=== PATIENT | female | born 1945 | race Two or more races ===

== ENCOUNTER → 2024-04-30 | Outpatient (CLI) | payer MEDICARE, SELFPAY ==
--- NOTE | 2024-04-30 13:30 | ECHO_ITS ---
Transthoracic Echo Report Ht (in): 66 Wt (lb): 155 Exam Location: Echo Lab Status: Preadmit Transaction Processor: Gina Yang Indications: Procedure Performed: BP: / HR: Rhythm: Sinus/PVC Technical Quality: Fair MEASUREMENTS (Male / Female) Normal Values 2D ECHO LV Diastolic Diameter PLAX 4.7 cm 4.2 - 5.9 / 3.9 - 5.3 cm LV Systolic Diameter PLAX 3.3 cm IVS Diastolic Thickness 0.9 cm 0.6 - 1.0 / 0.6 - 0.9 cm LVPW Diastolic Thickness 0.8 cm 0.6 - 1.0 / 0.6 - 0.9 cm LV Relative Wall Thickness 0.4 LVOT Diameter 1.8 cm LA Volume Index 20.0 cm?/m? 16 - 28 cm?/m? Ascending Aorta Diameter 3.2 cm M-MODE Aortic Root Diameter MM 2.7 cm LA Systolic Diameter MM 4.1 cm LA Ao Ratio MM 1.5 AV Cusp Separation MM 2.0 cm DOPPLER AV Peak Velocity 151.0 cm/s AV Peak Gradient 9.1 mmHg AV Mean Gradient 4.0 mmHg AV Velocity Time Integral 31.9 cm LVOT Peak Velocity 108.0 cm/s LVOT Peak Gradient 4.7 mmHg LVOT Velocity Time Integral 24.0 cm AV Area Cont Eq vti 1.9 cm? AV Area Cont Eq pk 1.8 cm? MV Peak Velocity 113.0 cm/s MV Peak Gradient 5.1 mmHg MV Mean Velocity 68.1 cm/s MV Mean Gradient 2.0 mmHg MV Area PHT 3.8 cm? MR Peak Velocity 474.5 cm/s MR Peak Gradient 90.1 mmHg Mitral E Point Velocity 78.6 cm/s Mitral A Point Velocity 97.5 cm/s Mitral E to A Ratio 0.8 LV E' Lateral Velocity 8.5 cm/s Mitral E to LV E' Lateral Ratio 9.3 LV E' Septal Velocity 6.5 cm/s Mitral E to LV E' Septal Ratio 12.0 TR Peak Velocity 254.0 cm/s TR Peak Gradient 25.8 mmHg FINDINGS Left Ventricle Normal left ventricular size, wall thickness, systolic function with no obvious regional wall motion abnormalities. The ejection fraction is visually estimated at 55-60 %. Right Ventricle The right ventricle is normal in size and systolic function. The estimated right ventricular systoli c pressure, 31mmHg. RAP 5. Left Atrium The left atrium is normal by two-dimensional, color flow and Doppler imaging with no structural abnormalities, no thrombus formation present. Right Atrium The right atrium is normal by two-dimensional imaging, color flow and Doppler imaging with no struct ural abnormalities, no thrombus formation present. Atrial Septum The interatrial septum appears normal with no evidence of a shunt. Aorta The aorta is normal by two-dimensional, color flow and Doppler interrogation. Mitral Valve The mitral valve is mildly MAC. There is mild to moderate mitral valve regurgitation. Aortic Valve The aortic valve is trileaflet and normal by two-dimensional, color flow and Doppler interrogation. There is no significant aortic valve regurgitation. Tricuspid Valve The tricuspid valve is normal by two-dimensional, color flow and Doppler interrogation. There is mil d tricuspid valve regurgitation. Pulmonic Valve The pulmonic valve is normal by two-dimensional, color flow and Doppler interrogation. There is no significant pulmonic valve regurgitation. Vessels The pulmonary artery appears normal. The inferior vena cava pulmonary and hepatic veins appear nikos l. Pericardium The pericardium is normal by two-dimensional imaging. There is no significant pericardial effusion. CONCLUSIONS Indication: Malignant neoplasm of pancreatic duct Normal LV size and function. Stage I diastolic dysfunction. Estimated EF 55-60% Normal RV size and function. Mild MAC. Mild to moderate MR. Mild TR. Nehemias Aguirre (Electronically Signed) Final Date: 01 May 2024 08:17
--- NOTE | 2024-04-30 14:00 | XR_ITS ---
Examination: CT chest with intravenous contrast CT abdomen with intravenous contrast CT pelvis with intravenous contrast 2-D coronal and sagittal reconstructions Time of exam: April 30, 20[address] abdomen pelvis January 06, 2024 INDICATIONS: Diagnosis malignant neoplasm pancreatic duct August 2023, restaging CTDI: vol (mGy) : 20.2 DLP: (mGycm): 822 Technique: Multiple axial images of the chest, abdomen and pelvis with intravenous contrast, 3.0 mm slice thickness. Images obtained post intravenous injection Isovue 370 60 cc. 2-D sagittal and coronal reconstructions. Low dose protocols were performed. One or more of the following dose reduction techniques were used; automated exposure control, adjustment of the mA and/or KV according to patient size, use of iterative reconstruction technique. Findings: No thoracic aortic aneurysm dilatation or dissection No pulmonary artery emboli Moderate calcification left main left anterior descending coronary arteries No paratracheal tracheobronchial or bronchopulmonary adenopathy No pneumonia, pulmonary edema, pleural disease or pulmonary nodules Diffuse fatty liver Liver is mildly irregular in contour Absent gallbladder Common bile duct does not appear enlarged Surgical clips in the pancreatic bed with no pancreatic mass noted Suspicious for 17 mm para-aortic lymph node No hydronephrosis No bowel obstruction Normal appendix Colonic diverticulosis, no diverticulitis No pelvic mass Urinary bladder intact Moderate osteopenia with advanced degenerative disc disease L2-L3, L3-L4, L4-L5 IMPRESSION: No mediastinal lymphadenopathy No pneumonia, pulmonary edema, pleural disease or pulmonary nodules Suspicious for 17 mm periaortic lymph node, consider PET CT scan follow-up
== END | disposition home or self-care (01) ==
PROVIDERS: PCP Internal Medicine; Referring Provider Internal Medicine Hematology & Oncology; Visit Provider Internal Medicine Hematology & Oncology
DX: I08.1 Rheumatic disorders of both mitral and tricuspid valves (principal); C25.3 Malignant neoplasm of pancreatic duct
CPT/HCPCS: 71260; 74177; 93306; A4649; Q9967

== ENCOUNTER 2024-05-05 13:06 | Outpatient (RCR) | payer MEDICARE, SELFPAY ==
[2024-04-30 12:07] LABS: Basophils # (Auto) 0.1 Thou/mm3 (0.0-0.2); Basophils % (Auto) 0 % (0-2.5); Eosinophils # (Auto) 0.2 Thou/mm3 (0.0-0.5); Eosinophils % (Auto) 2 % (0-10); Hematocrit 34.7 % (36.0-46.0); Hemoglobin 11.3 g/dL (12.0-16.0); Immature Granulocytes % (Auto) 0 % (0-0); Immature Granulocytes Auto 0.03 Thou/mm3 (0.00-0.00); Lymphocytes # (Auto) 2.3 Thou/mm3 (1.0-4.8); Lymphocytes % (Auto) 19 % (10-50); Mean Corpuscular HGB Conc 32.6 g/dl (31.0-37.0); Mean Corpuscular Hemoglobin 27.4 pg (25.0-35.0); Mean Corpuscular Volume 84 fL (80-100); Monocytes % (Auto) 8 % (0-12); Neutrophils # (Auto) 8.7 Thou/mm3 (1.8-7.7); Neutrophils % (Auto) 71 % (37-80); Nucleated Red Blood Cell % 0 /100 WBC (0); Platelet Count 305 Thou/mm3 (140-440); RDW Standard Deviation 43.4 fL (36.4-46.3); Red Blood Count 4.13 Miln/mm3 (4.00-5.20); White Blood Count 12.3 Thou/mm3 (3.6-11.0)
[2024-04-30 12:34] LABS: Alanine Aminotransferase 15 U/L (10-49); Albumin, Serum 4.6 gm/dL (3.4-4.8); Albumin/Globulin Ratio 2.1 (1.2-2.2); Alkaline Phosphatase 188 U/L (46-116); Anion Gap 5 (7-16); Aspartate Amino Transferase 20 U/L (0-34); BUN/Creatinine Ratio 18 Ratio (12-20); Bilirubin,Total 0.2 mg/dL (0.3-1.2); Blood Urea Nitrogen 18 mg/dL (9-23); Calcium 9.3 mg/dL (8.3-10.6); Calcium (Corrected) 9.3 mg/dL (8.5-10.1); Carbon Dioxide 25.1 mMol/L (20.0-31.0); Chloride 108 mMol/L (98-107); Globulin 2.2 gm/dL (2.3-3.5); Glucose 93 mg/dL (74-106); Osmolality,Calculated 277 (275-295); Potassium 4.4 mMol/L (3.4-5.1); Sodium 138 mMol/L (136-145); Total Protein 6.8 gm/dL (5.7-8.2); eGFR 58 See Note
[2024-05-04 06:24] LABS: CA 19-9 Antigen* 36 U/mL (<34)
--- NOTE | 2024-05-24 20:48 | CTCFLWUP_ITS ---
Patient: TYREL VOGT : 1945 Page 2 of 4 FOLLOW UP NOTE DATE OF SERVICE: 05/04/2024 NAME: TYREL VOGT ACCOUNT: [id number] : 1945 AGE: 78 INTERVAL HISTORY: Patient doing well and have no complaints. Patient is able to do all activities of daily living. ONCOLOGY HISTORY: DIAGNOSIS: Malignant neoplasm of pancreatic duct [ICD10] C25.3 04/30/2024 CT scan shows no mediastinal lymphadenopathy no pneumonia. 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 S/p Whipple resection (08/21/2023) S/p adjuvant chem otherapy with capecitabine and gemcitabine (11/05/2023??12/25/2019). Unfortunately she is not able to to lerate full recommended doses. Upper abdominal pain due to UTI (01/10/2024) treated with antibiotics. Chemotherapy was discontinued a t patient's. Timeline Tyrel Vogt is ENG speaking female with history of hypertension and depression has the [facility] oncology history. April 2023: Ms. Vogt started having upper abdominal discomfort/pain. 07/04: The patient found that she is jaundiced and went to [facility] emergency room. 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 She had stent placed. She also had biliary drain tube. With drainage to the outside. She was in the hospital till July 10, After that she was transferred to [facility]. She was admitted to the Hospital. She had biop sy of the pancreatic mass and discharged home on . Apparently biopsy showed pancreatic canc er. 07/12/2023: Ms. Vogt had CT scan of the chest with contrast? Patient: TYREL VOGT : [birth year] Page 2 of 6 08/21/2023: Ms. Vogt had a Whipple resection of the head of the pancreas with resection of the partial antrum of the stomach, liver resection of partial segments 3 and partial segments 4, 5, placement of fiducial markers, removal of foreign body which was a cholecy stostomy tube and periportal lymphadenectomy. Patient: TYREL VOGT : 1945 136 Page 3 of 6 11/05/2023?12/25/2019: The patient was treated with adjuvant capecitabine and gemcita bine. The chemotherapy was discontinued due to severe urosepsis requiring her to be transferred to [facility]. 01/22/2024: Chest x-ray PA and lateral views were obtained due to shortness of breath. Patient had a history of cigarette smoking for about 30 years. 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 Tobacco Use:?Quit 3 months ago - smoked 1pack/week x 30yrs ETOH?Use:?Denies Drug?Note:?Denies Social History Note:?Son and family live with pt [employer] HISTORY: Menarche?-?Age:?17 Menopause:?45 :?3 Live?Births:?3 Age?1st?:?19 MEDICATIONS: 1. buPROPion HCL - 150 mg 1 tab Daily 2. Creon - 36,000-114,000- 180,000 unit 1 Capsule Three times a day Medications Last Reconciled by Emilia Mitchell MA on 05/04/2024 ALLERGIES: erythromycin base REVIEW OF SYSTEMS: A complete 14-point review of systems was performed and is negative except as noted in interval histo ry. PHYSICAL EXAMINATION: VITAL SIGNS: Temperature?98.6, B/P?152/86, Oxygen?Saturation?98% Weight?153?lbs (Change?since? 4:?-2.6?lbs) PAIN: 0 - No pain ECOG Performance Status: 0 - Asymptomatic and fully active GENERAL APPEARANCE: Appears well, in no apparent distress, appropriately interactive. HEENT: Normocephalic, no temporal wasting, normal conjunctiva, no scleral icterus, normal hearing, li ps without lesions, neck normal range of motion. CARDIOVASCULAR: Not assessed. PULMONARY: Normal respiratory effort, no respiratory distress or use of accessory muscles, speaking i n full sentences, no tachypnea. EXTREMITIES: No pedal edema or cyanosis. SKIN: Normal skin appearance. NEUROLOGIC: Alert and oriented x4. PSHYCHIATRIC: Appropriate affect, mood normal, behavior normal, intact thought and speech. LABORATORY DATA: I have personally reviewed and interpreted each of the patient?s relevant lab tests, abnormal finding s are below: Date 04/30/24 ??GLUCOSE,RANDOM?(mg/dL) 93 ??BLOOD?UREA?NITROGEN?(mg/dL) 18 ??CREATININE?(mg/dL) 1.00 ??SODIUM?(mmol/L) 138 ??POTASSIUM?(mmol/L) 4.4 ??CHLORIDE?(mmol/L) 108?H ??CrCl?(CandG)?(ml/min) 52.49 ??AST/SGOT?(Unit/L) 20 ??ALT/SGPT?(Unit/L) 15 ??ALKALINE?PHOSPHATASE?(Unit/L) 188?H ??BILIRUBIN,?TOTAL?(mg/dL) 0.2?L ??PROTEIN?TOTAL?(gm/dl) 6.8 ??ALBUMIN,?SERUM?(gm/dl) 4.6 ??GLOBULIN?(gm/dl) 2.2?L ??ALBUMIN/GLOBULIN?RATIO 2.1 ??CALCIUM,?SERUM?(mg/dL) 9.3 ??CALCIUM?SERUM?(CORRECTED)?(mg/dL) 9.3 ASSESSMENT/PLAN: 1. 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 S/p Whipple resection (08/21/2023) Status post adjuvant chemotherapy with gemcitabine and capecitabine from 11/05/2023 to 12/25/2023. Chem otherapy was discontinued due to severe urosepsis Patient and family decided not to further pursue adjuvant chemotherapy and has been on active surveil bev. I reviewed CT scan with them and discussed finding. Patient do not have any suspicious lymph adenopathy but noted to have para-aortic lymph node which is suspicious and radiology has recommended PET CT scan I ordered PET CT scan and will follow Ms. Vogt after the scan 2. Hypertension 3. Depression CBC CMP CEA PET CT scan RETURN TO CLINIC: 6 to 8 weeks after the scan BILLING AND COMPLIANCE: I reviewed external records from providers outside my specialty as summarized above. I spent a total of 50 minutes on this patient?s care on the day of their visit excluding time spent related to any bi lled procedures. This time includes time spent with the patient as well as time spent documenting in the medical record, reviewing patients records and tests, obtaining history, placing orders, communi cating with other healthcare professionals, counseling the patient, family or caregiver, and/or care coordination for the diagnoses above. Electronically Signed by: Nahun Snyder MD T: 8:46 PM CC: PCP: Referring: Nahun Snyder This document was completed utilizing speech recognition software. Grammatical errors, random word in sertions, pronoun errors, and incomplete sentences are an occasional consequence of this system due t o software limitations, ambient noise, and hardware issues. Any formal questions or concerns about th e content, text or information contained within the body of this dictation should be directly address ed to the provider for clarification.
== END 2024-05-18 23:59 | disposition home or self-care (01) ==
LOC: SCTC 13:06
PROVIDERS: Referring Provider Internal Medicine Hematology & Oncology; Visit Provider Internal Medicine Hematology & Oncology
DX: C25.3 Malignant neoplasm of pancreatic duct (principal); Z92.21 Personal history of antineoplastic chemotherapy; I10 Essential (primary) hypertension; F32.A Depression, unspecified
CPT/HCPCS: 36591; 80053; 85025; 86301; 96374; 99212; A4216; J1642; J2997; G0463

== ENCOUNTER → 2024-06-10 | Outpatient (CLI) | payer MEDICARE, SELFPAY ==
--- NOTE | 2024-06-10 11:45 | XR_ITS ---
Examination: Transvaginal ultrasound of the pelvis, complete Technique: Transvaginal sonographic images pelvis performed using dunaway scale imaging Exam date and time: June 10, 2024 1218 hours INDICATIONS: Abnormally thickened endometrial stripe, uterus on CT examination October 28, 2023 FINDINGS: Uterus 4.1 x 1.7 x 3.7 cm anteverted Multiple calcifications Endometrial stripe 0.2 cm Minimal fluid in the endometrium Ovaries obscured by bowel gas IMPRESSION: Endometrial stripe is not thickened on this study.
== END | disposition home or self-care (01) ==
LOC: CDIM 11:21
PROVIDERS: Referring Provider Internal Medicine Hematology & Oncology; Visit Provider Internal Medicine Hematology & Oncology
DX: C25.3 Malignant neoplasm of pancreatic duct (principal)
CPT/HCPCS: 76830

== ENCOUNTER → 2024-07-12 | Outpatient (CLI) | payer MEDICARE, SELFPAY ==
--- NOTE | 2024-07-12 14:51 | XR_ITS ---
EXAMINATION: PET/CT FUSION SKULL TO THIGH EXAM DATE AND TIME: July 12, [address] chest abdomen pelvis April 30, 2024 Indications: Diagnosis pancreatic carcinoma, staging CTDI:vol (mGy) 5.34 DLP: (mGycm) 428.68 PROCEDURE: 14.14 mCi FDG was administered intravenously To allow for distribution and uptake of radiotracer, the patient was allowed to rest quietly in a shielded room. Imaging was performed on an integrated 16-slice PET/CT scanner, with scanning from the skull base to the mid thigh. Serum blood glucose at the time of the injection was measured 105 mg/dL. CT scanning was performed without oral or intravenous contrast material. FINDINGS: Head and Neck: There is no conner hypermetabolism in the neck. The visualized portions of the brain are normal in appearance on CT. Chest: There is no conner hypermetabolism in the chest. There are no pulmonary nodules. Abdomen and Pelvis: Hypermetabolic 8mm right nicolette hepatis and time Hypermetabolic 6 mm nicolette hepatis lymph nodes Hypermetabolic 8mm right lateral periaortic lymph node Hypermetabolic 10 mm right periaortic lymph node Mild dilatation pancreatic duct No ascites No bowel obstruction Musculoskeletal: Marrow uptake is within normal range. IMPRESSION: Hypermetabolic nicolette hepatis and periaortic metastatic lymphadenopathy
== END | disposition home or self-care (01) ==
PROVIDERS: Referring Provider Internal Medicine Hematology & Oncology; Visit Provider Internal Medicine Hematology & Oncology
DX: R59.1 Generalized enlarged lymph nodes (principal); C25.3 Malignant neoplasm of pancreatic duct
CPT/HCPCS: 78815; A9552

== ENCOUNTER 2024-07-14 11:07 | Outpatient (RCR) | payer MEDICARE, SELFPAY ==
[2024-07-12 16:06] LABS: Basophils % (Auto) 1 % (0-2.5); Eosinophils # (Auto) 0.5 Thou/mm3 (0.0-0.5); Eosinophils % (Auto) 6 % (0-10); Hematocrit 31.1 % (36.0-46.0); Hemoglobin 9.9 g/dL (12.0-16.0); Immature Granulocytes % (Auto) 0 % (0-0); Immature Granulocytes Auto 0.03 Thou/mm3 (0.00-0.00); Lymphocytes # (Auto) 2.8 Thou/mm3 (1.0-4.8); Lymphocytes % (Auto) 34 % (10-50); Mean Corpuscular HGB Conc 31.8 g/dl (31.0-37.0); Mean Corpuscular Volume 85 fL (80-100); Monocytes # (Auto) 0.5 Thou/mm3 (0.0-0.8); Monocytes % (Auto) 7 % (0-12); Neutrophils # (Auto) 4.2 Thou/mm3 (1.8-7.7); Neutrophils % (Auto) 52 % (37-80); Nucleated Red Blood Cell % 0 /100 WBC (0); Platelet Count 339 Thou/mm3 (140-440); Red Blood Count 3.67 Miln/mm3 (4.00-5.20); White Blood Count 8.1 Thou/mm3 (3.6-11.0)
[2024-07-12 16:28] LABS: Alanine Aminotransferase 14 U/L (10-49); Albumin, Serum 4.3 gm/dL (3.4-4.8); Albumin/Globulin Ratio 1.7 (1.2-2.2); Alkaline Phosphatase 177 U/L (46-116); Anion Gap 9 (7-16); Aspartate Amino Transferase 21 U/L (0-34); BUN/Creatinine Ratio 12 Ratio (12-20); Bilirubin,Total 0.3 mg/dL (0.3-1.2); Blood Urea Nitrogen 11 mg/dL (9-23); Calcium 9.4 mg/dL (8.3-10.6); Calcium (Corrected) 9.4 mg/dL (8.5-10.1); Carbon Dioxide 24.4 mMol/L (20.0-31.0); Chloride 108 mMol/L (98-107); Creatinine (Component) 0.9 mg/dL (0.6-1.3); Globulin 2.6 gm/dL (2.3-3.5); Glucose 93 mg/dL (74-106); Osmolality,Calculated 280 (275-295); Potassium 4.8 mMol/L (3.4-5.1); Sodium 141 mMol/L (136-145); Total Protein 6.9 gm/dL (5.7-8.2); eGFR > 60 See Note
--- NOTE | 2024-07-15 08:23 | CTCFLWUP_ITS ---
Patient: TYREL VOGT : 1945 Page 2 of 4 FOLLOW UP NOTE DATE OF SERVICE: 07/14/2024 NAME: TYREL VOGT ACCOUNT: [id number] : 1945 AGE: 78 INTERVAL HISTORY: Patient doing well and have no complaints. Patient is able to do all activities of daily living. ONCOLOGY HISTORY: DIAGNOSIS: Malignant neoplasm of pancreatic duct [ICD10] C25.3 04/30/2024 CT scan shows no mediastinal lymphadenopathy no pneumonia. 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 S/p Whipple resection (08/21/2023) S/p adjuvant chemotherapy with capecitabine and gemcitabine (11/05/2023??12/25/2019). Unfortunately she is not able to tolerate full recommended doses. Upper abdominal pain due to UTI (01/10/2024) treated with antibiotics. Chemotherapy was discontinued at patient's. Timeline Tyrel Vogt is ENG speaking female with history of hypertension and depression has the following oncology history. April 2023: Ms. Vogt started having upper abdominal discomfort/pain. 07/04/2023: The patient found that she is jaundiced and went to [facility] emergency room. 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 She had stent placed. She also had biliary drain tube. With drainage to the outside. She was in the hospital till July 10, After that she was transferred to [facility]. She was admitted to the Hospital. She had biopsy of the pancreatic mass and discharged home on . Apparently biopsy showed pancreatic cancer. 07/12/2023: Ms. Vogt had CT scan of the chest with contrast? Patient: TYREL VOGT DOB: 1945 Page 2 of 6 08/21/2023: Ms. Vogt had a Whipple resection of the head of the pancreas with resection of the partial antrum of the stomach, liver resection of partial segments 3 and partial segments 4, 5, placement of fiducial markers, removal of foreign body which was a cholecystostomy tube and periportal lymphadenectomy. Patient: TYREL VOGT : 1945 Page 3 of 6 11/05/2023?12/25/2019: The patient was treated with adjuvant capecitabine and gemcitabine. The chemotherapy was discontinued due to severe urosepsis requiring her to be transferred to [facility]. 01/22/2024: Chest x-ray PA and lateral views were obtained due to shortness of breath. Patient had a history of cigarette smoking for about 30 years. 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 Tobacco Use:?Quit 3 months ago - smoked 1pack/week x 30yrs ETOH?Use:?Denies Drug?Note:?Denies Social History Note:?Son and family live with pt [employer] HISTORY: Menarche?-?Age:?17 Menopause:?45 :?3 Live?Births:?3 Age?1st?:?19 MEDICATIONS: 1. buPROPion HCL - 150 mg 1 tab Daily 2. Creon - 36,000-114,000- 180,000 unit 1 Capsule Three times a day Medications Last Reconciled by Emilia Mitchell MA on 07/14/2024 ALLERGIES: erythromycin base REVIEW OF SYSTEMS: A complete 14-point review of systems was performed and is negative except as noted in interval history. PHYSICAL EXAMINATION: VITAL SIGNS: Temperature?98.2, B/P?146/84, Oxygen?Saturation?97% Weight?158?lbs (Change?since?07/12/24:?-0.4?lbs) PAIN: 0 - No pain ECOG Performance Status: 0 - Asymptomatic and fully active GENERAL APPEARANCE: Appears well, in no apparent distress, appropriately interactive. HEENT: Normocephalic, no temporal wasting, normal conjunctiva, no scleral icterus, normal hearing, lips without lesions, neck normal range of motion. CARDIOVASCULAR: Not assessed. PULMONARY: Normal respiratory effort, no respiratory distress or use of accessory muscles, speaking in full sentences, no tachypnea. EXTREMITIES: No pedal edema or cyanosis. SKIN: Normal skin appearance. NEUROLOGIC: Alert and oriented x4. PSHYCHIATRIC: Appropriate affect, mood normal, behavior normal, intact thought and speech. LABORATORY DATA: I have personally reviewed and interpreted each of the patient?s relevant lab tests, abnormal findings are below: Date 07/12/24 ??WHITE?BLOOD?COUNT?(Thou/mm3) 8.1 ??RED?BLOOD?COUNT?(Miln/mm3) 3.67?L ??HEMOGLOBIN?(gm/dl) 9.9?L ??HEMATOCRIT?(%) 31.1?L ??PLATELET?COUNT?(Thou/mm3) 339 ??NEUTROPHILS?%,?AUTO?(%) 52 ??LYMPH?%,?AUTO?(%) 34 ??NEUTROPHILS,?AUTO?(Thou/mm3) 4.2 ASSESSMENT/PLAN: 1. 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 S/p Whipple resection (08/21/2023) Status post adjuvant chemotherapy with gemcitabine and capecitabine from 11/05/2023 to 12/25/2023. Chemotherapy was discontinued due to severe urosepsis Patient and family decided not to further pursue adjuvant chemotherapy and has been on active surveillance. I reviewed CT scan with them and discussed finding. Patient do not have any suspicious lymphadenopathy but noted to have para-aortic lymph node which is suspicious and radiology has recommended PET CT scan Pet scan shows multiple enlarged nodes Will send to IR for biopsy. As LN are small biopsy may be difficult Will follow on [id number] and order hector to see if patient have recurrence Will start on chemotherapy if confirmed recurrecnce Discussed intermediate teacher poor prognosis of pancreatic cancer Port catheter flushed 2. Hypertension 3. Depression CBC CMP ca 19-9 and naterra for MRD RETURN TO CLINIC: 3 weeks BILLING AND COMPLIANCE: I reviewed external records from providers outside my specialty as summarized above. I spent a total of 50 minutes on this patient?s care on the day of their visit excluding time spent related to any billed procedures. This time includes time spent with the patient as well as time spent documenting in the medical record, reviewing patients records and tests, obtaining history, placing orders, communicating with other healthcare professionals, counseling the patient, family or caregiver, and/or care coordination for the diagnoses above. Electronically Signed by: Nahun Snyder MD T: 8:21 AM CC: PCP: Referring: Nahun Snyder This document was completed utilizing speech recognition software. Grammatical errors, random word insertions, pronoun errors, and incomplete sentences are an occasional consequence of this system due to software limitations, ambient noise, and hardware issues. Any formal questions or concerns about the content, text or information contained within the body of this dictation should be directly addressed to the provider for clarification.
[2024-07-16 06:25] LABS: CA 19-9 Antigen* 40 U/mL (<34)
== END 2024-07-16 23:59 | disposition home or self-care (01) ==
LOC: SCTC 11:07
PROVIDERS: PCP Student in an Organized Health Care Education/Training Program; Referring Provider Internal Medicine Hematology & Oncology; Visit Provider Internal Medicine Hematology & Oncology
DX: C25.3 Malignant neoplasm of pancreatic duct (principal); Z92.21 Personal history of antineoplastic chemotherapy; I10 Essential (primary) hypertension; F32.A Depression, unspecified
CPT/HCPCS: 36415; 80053; 85025; 86301; 99212; A4216; J1642; G0463

== ENCOUNTER → 2024-07-23 | Outpatient (CLI) | payer MEDICARE, SELFPAY ==
--- NOTE | 2024-07-23 13:30 | ECHO_ITS ---
Transthoracic Echo Report Ht (in): 66 Wt (lb): 157 Exam Location: Echo Lab Status: Preadmit Informal Waiter/Waitress: FROY Adams^^^^ Indications: Procedure Performed: BP: 126 / 77 HR: 76 Rhythm: PVCs Technical Quality: Fair MEASUREMENTS (Male / Female) Normal Values 2D ECHO LV Diastolic Diameter PLAX 5.2 cm 4.2 - 5.9 / 3.9 - 5.3 cm LV Systolic Diameter PLAX 3.5 cm IVS Diastolic Thickness 0.6 cm 0.6 - 1.0 / 0.6 - 0.9 cm LVPW Diastolic Thickness 0.8 cm 0.6 - 1.0 / 0.6 - 0.9 cm LV Relative Wall Thickness 0.3 LVOT Diameter 1.8 cm Aortic Root Diameter 2.4 cm LA Systolic Diameter LX 2.8 cm 3.0 - 4.0 / 2.7 - 3.8 cm LV Ejection Fraction MOD BP 65.0 % >= 55 % LV Cardiac Index MOD BP 3259.9 cm?/min?m? LV Ejection Fraction MOD 4C 70.0 % LV Cardiac Index MOD 4C 4325.8 cm?/min?m? LV Ejection Fraction 4C AL 70.9 % LV Cardiac Index 4C AL 4563.2 cm?/min?m? LV Ejection Fraction MOD 2C 61.2 % LV Cardiac Index MOD 2C 2500.9 cm?/min?m? LV Ejection Fraction 2C AL 62.9 % LV Cardiac Index 2C AL 2604.6 cm?/min?m? LA Volume Index 26.2 cm?/m? 16 - 28 cm?/m? Ascending Aorta Diameter 1.9 cm DOPPLER AV Peak Velocity 136.0 cm/s AV Peak Gradient 7.4 mmHg AV Mean Gradient 5.0 mmHg AV Velocity Time Integral 33.8 cm AI Peak Velocity 188.0 cm/s AI Peak Gradient 14.1 mmHg AI Pressure Half Time 696.0 ms LVOT Peak Velocity 105.0 cm/s LVOT Peak Gradient 4.4 mmHg LVOT Velocity Time Integral 29.8 cm LVOT Cardiac Index 3145.1 cm?/min?m? AV Area Cont Eq vti 2.2 cm? AV Area Cont Eq pk 2.0 cm? MV Area PHT 4.1 cm? MR Peak Velocity 470.5 cm/s MR Peak Gradient 88.5 mmHg Mitral E Point Velocity 78.7 cm/s Mitral A Point Velocity 101.0 cm/s Mitral E to A Ratio 0.8 LV E' Lateral Velocity 9.1 cm/s Mitral E to LV E' Lateral Ratio 8.6 LV E' Septal Velocity 7.5 cm/s Mitral E to LV E' Septal Ratio 10.5 TR Peak Velocity 229.0 cm/s TR Peak Gradient 21.0 mmHg PV Peak Velocity 99.5 cm/s PV Peak Gradient 4.0 mmHg FINDINGS Left Ventricle Normal left ventricular size, wall thickness, systolic function with no obvious regional wall motion abnormalities. There is grade I diastolic dysfunction of the left ventricle (impaired relaxation pattern). The left ventricular ejection fraction is normal, estimated at 60-65%. Right Ventricle The right ventricle is normal in size and systolic function. The estimated right ventricular systolic pressure, 21 mmHg. Left Atrium The left atrium is normal by two-dimensional, color flow and Doppler imaging with no structural abnormalities, no thrombus formation present. Right Atrium The right atrium is normal by two-dimensional imaging, color flow and Doppler imaging with no structural abnormalities, no thrombus formation present. Atrial Septum The interatrial septum appears normal with no evidence of a shunt. Aorta The aorta is normal by two-dimensional, color flow and Doppler interrogation. Mitral Valve Feoh-mj-qrivboey mitral regurgitation. Mild mitral annular calcification. Aortic Valve Trace to mild aortic valve regurgitation. Tricuspid Valve There is mild tricuspid valve regurgitation. Pulmonic Valve Trivial pulmonic valve regurgitation. Vessels The pulmonary artery appears normal. The inferior vena cava pulmonary and hepatic veins appear normal. Pericardium The pericardium is normal by two-dimensional imaging. There is no significant pericardial effusion. Other Findings PVC's CONCLUSIONS indication: cancer center LV appears normal with EF 60-65%. Diastolic Dysfunction I present. RV appears normal with RVSP 21 mmHg. MV has mild-mod MR with MAC. AOV has trace-mild AI. TV has mild TR. Ovidio Quiles (Electronically Signed) Final Date: 24 July 2024 13:33
== END | disposition home or self-care (01) ==
LOC: SDIM 13:05
PROVIDERS: Referring Provider Internal Medicine Hematology & Oncology; Visit Provider Internal Medicine Hematology & Oncology
DX: I08.3 Combined rheumatic disorders of mitral, aortic and tricuspid valves (principal); C25.3 Malignant neoplasm of pancreatic duct
CPT/HCPCS: 93306

== ENCOUNTER 2024-08-16 07:49 | Outpatient (RCR) | payer MEDICARE, SELFPAY ==
--- NOTE | 2024-07-20 16:28 | CTCFLWUP_ITS ---
Patient: TYREL VOGT : 1945 Page 2 of 2 FOLLOW UP NOTE DATE OF SERVICE: 07/20/2024 NAME: TYREL VOGT ACCOUNT: [id number] : 1945 AGE: 78 INTERVAL HISTORY: Patient doing well and have no complaints. Patient is able to do all activities of daily living. ONCOLOGY HISTORY: DIAGNOSIS: Malignant neoplasm of pancreatic duct [ICD10] C25.3 04/30/2024 CT scan shows no mediastinal lymphadenopathy no pneumonia. 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 S/p Whipple resection (08/21/2023) S/p adjuvant chemotherapy with capecitabine and gemcitabine (11/05/2023??12/25/2019). Unfortunately she is not able to tolerate full recommended doses. Upper abdominal pain due to UTI (01/10/2024) treated with antibiotics. Chemotherapy was discontinued at patient's. Timeline Tyrel Vogt is ENG speaking female with history of hypertension and depression has the following oncology history. April 2023: Ms. Vogt started having upper abdominal discomfort/pain. 07/04/2023: The patient found that she is jaundiced and went to [facility] emergency room. 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 She had stent placed. She also had biliary drain tube. With drainage to the outside. She was in the hospital till July 10, After that she was transferred to [facility]. She was admitted to the Hospital. She had biopsy of the pancreatic mass and discharged home on . Apparently biopsy showed pancreatic cancer. 07/12/2023: Ms. Vogt had CT scan of the chest with contrast? Patient: TYREL VOGT : 1945 Page 2 of 6 08/21/2023: Ms. Vogt had a Whipple resection of the head of the pancreas with resection of the partial antrum of the stomach, liver resection of partial segments 3 and partial segments 4, 5, placement of fiducial markers, removal of foreign body which was a cholecystostomy tube and periportal lymphadenectomy. Patient: TYREL VOGT : 1945 Page 3 of 6 11/05/2023?12/25/2019: The patient was treated with adjuvant capecitabine and gemcitabine. The chemotherapy was discontinued due to severe urosepsis requiring her to be transferred to [facility]. 01/22/2024: Chest x-ray PA and lateral views were obtained due to shortness of breath. Patient had a history of cigarette smoking for about 30 years. 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 buPROPion HCL - 150 mg 1 tab Daily 2. capecitabine - 500 mg 3 tab 3 tabs twice daily 3. Creon - 36,000-114,000- 180,000 unit 1 Capsule Three times a day 4. DULoxetine - 30 mg 1 Capsule Daily 5. omeprazole - 20 mg 1 Capsule In the morning Medications Last Reconciled by Harleen Hand MA on 07/20/2024 ALLERGIES: erythromycin base REVIEW OF SYSTEMS: A complete 14-point review of systems was performed and is negative except as noted in interval history. PHYSICAL EXAMINATION: VITAL SIGNS: Temperature?98, B/P?137/82, Oxygen?Saturation?98% Weight?157?lbs (Change?since?07/14/24:?-1?lbs) PAIN: 0 - No pain ECOG Performance Status: 0 - Asymptomatic and fully active GENERAL APPEARANCE: Appears well, in no apparent distress, appropriately interactive. HEENT: Normocephalic, no temporal wasting, normal conjunctiva, no scleral icterus, normal hearing, lips without lesions, neck normal range of motion. CARDIOVASCULAR: Not assessed. PULMONARY: Normal respiratory effort, no respiratory distress or use of accessory muscles, speaking in full sentences, no tachypnea. EXTREMITIES: No pedal edema or cyanosis. SKIN: Normal skin appearance. NEUROLOGIC: Alert and oriented x4. PSHYCHIATRIC: Appropriate affect, mood normal, behavior normal, intact thought and speech. LABORATORY DATA: I have personally reviewed and interpreted each of the patient?s relevant lab tests, abnormal findings are below: Date 07/12/24 ??WHITE?BLOOD?COUNT?(Thou/mm3) 8.1 ??RED?BLOOD?COUNT?(Miln/mm3) 3.67?L ??HEMOGLOBIN?(gm/dl) 9.9?L ??HEMATOCRIT?(%) 31.1?L ??PLATELET?COUNT?(Thou/mm3) 339 ??NEUTROPHILS?%,?AUTO?(%) 52 ??LYMPH?%,?AUTO?(%) 34 ??NEUTROPHILS,?AUTO?(Thou/mm3) 4.2 ASSESSMENT/PLAN: 1. 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 S/p Whipple resection (08/21/2023) Status post adjuvant chemotherapy with gemcitabine and capecitabine from 11/05/2023 to 12/25/2023. Chemotherapy was discontinued due to severe urosepsis Patient and family decided not to further pursue adjuvant chemotherapy and has been on active surveillance. I reviewed CT scan with them and discussed finding. 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 Hypertension 3. Depression CBC CMP ca 19-9 and naterra for MRD RETURN TO CLINIC: 4 weeks BILLING AND COMPLIANCE: I reviewed external records from providers outside my specialty as summarized above. I spent a total of 50 minutes on this patient?s care on the day of their visit excluding time spent related to any billed procedures. This time includes time spent with the patient as well as time spent documenting in the medical record, reviewing patients records and tests, obtaining history, placing orders, communicating with other healthcare professionals, counseling the patient, family or caregiver, and/or care coordination for the diagnoses above. Electronically Signed by: Nahun Snyder MD T: 4:26 PM CC: PCP: Referring: Nahun Snyder This document was completed utilizing speech recognition software. Grammatical errors, random word insertions, pronoun errors, and incomplete sentences are an occasional consequence of this system due to software limitations, ambient noise, and hardware issues. Any formal questions or concerns about the content, text or information contained within the body of this dictation should be directly addressed to the provider for clarification.
[2024-08-16 09:26] LABS: Basophils % (Auto) 1 % (0-2.5); Eosinophils # (Auto) 0.2 Thou/mm3 (0.0-0.5); Eosinophils % (Auto) 4 % (0-10); Immature Granulocytes % (Auto) 0 % (0-0); Immature Granulocytes Auto 0.02 Thou/mm3 (0.00-0.00); Lymphocytes # (Auto) 1.7 Thou/mm3 (1.0-4.8); Lymphocytes % (Auto) 27 % (10-50); Mean Corpuscular HGB Conc 32.1 g/dl (31.0-37.0); Mean Corpuscular Hemoglobin 26.6 pg (25.0-35.0); Mean Corpuscular Volume 83 fL (80-100); Monocytes # (Auto) 0.7 Thou/mm3 (0.0-0.8); Monocytes % (Auto) 11 % (0-12); Neutrophils # (Auto) 3.7 Thou/mm3 (1.8-7.7); Neutrophils % (Auto) 58 % (37-80); Nucleated Red Blood Cell % 0 /100 WBC (0); Platelet Count 355 Thou/mm3 (140-440); RDW Standard Deviation 43.9 fL (36.4-46.3); Red Blood Count 3.38 Miln/mm3 (4.00-5.20); White Blood Count 6.5 Thou/mm3 (3.6-11.0)
[2024-08-16 09:48] LABS: Alanine Aminotransferase 8 U/L (10-49); Albumin/Globulin Ratio 1.6 (1.2-2.2); Alkaline Phosphatase 156 U/L (46-116); Anion Gap 10 (7-16); Aspartate Amino Transferase 19 U/L (0-34); BUN/Creatinine Ratio 16 Ratio (12-20); Bilirubin,Total 0.4 mg/dL (0.3-1.2); Blood Urea Nitrogen 18 mg/dL (9-23); Calcium 9.3 mg/dL (8.3-10.6); Calcium (Corrected) 9.3 mg/dL (8.5-10.1); Carbon Dioxide 25.4 mMol/L (20.0-31.0); Chloride 107 mMol/L (98-107); Creatinine (Component) 1.1 mg/dL (0.6-1.3); Globulin 2.5 gm/dL (2.3-3.5); Glucose 110 mg/dL (74-106); Osmolality,Calculated 286 (275-295); Sodium 142 mMol/L (136-145); Total Protein 6.5 gm/dL (5.7-8.2); eGFR 52 See Note
[2024-08-19 07:19] LABS: CA 19-9 Antigen* 19 U/mL (<34)
== END 2024-08-16 23:59 | disposition home or self-care (01) ==
LOC: SCTC 07:49
PROVIDERS: PCP Internal Medicine; Referring Provider Internal Medicine Hematology & Oncology; Visit Provider Internal Medicine Hematology & Oncology
DX: C25.3 Malignant neoplasm of pancreatic duct (principal); Z92.21 Personal history of antineoplastic chemotherapy; R59.9 Enlarged lymph nodes, unspecified; I10 Essential (primary) hypertension; F32.A Depression, unspecified
CPT/HCPCS: 36591; 80053; 85025; 86301; 99212; A4216; J1642; G0463

== ENCOUNTER 2024-09-03 10:10 | Emergency (ER) | payer MEDICARE, SELFPAY ==
[2024-09-03 10:11] VITALS: BMI 25.0
[2024-09-03 10:19] VITALS: BP 115/69; PULSE 95; RESP 18; TEMP 36.9; O2SAT 99
--- NOTE | 2024-09-03 10:29 | XR_ITS ---
Examination: CT abdomen with intravenous contrast CT pelvis with intravenous contrast 2-D coronal reconstructions 2-D sagittal reconstructions Date and time of exam:September 03, 2024 1129 hours Comparison PET/CT scan July 12, 2024 INDICATIONS: Diagnosis pancreatic cancer, vomiting 5 days. CTDI: vol (mGy) 8.17 DLP: (mGycm) 443 Technique: Multiple axial sections of the abdomen and pelvis have been obtained. 64 slice high-resolution scanner used. 3 mm axial sections have been obtained, post intravenous injection 60 cc [id number] 2-D sagittal coronal reconstructions 3-D reconstructions Low dose protocols, automated exposure control, adjustment MA KV according to patient size FINDINGS: No focal liver lesions Spleen not enlarged No intrahepatic biliary tract dilatation Absent gallbladder Pancreatic mass is not depicted 6 mm anterior left periaortic lymph node 4 mm left lateral periaortic lymph node 10 mm nicolette hepatis lymph node No bowel obstruction No diverticulitis Small bowel loops show diffuse wall thickening Colonic diverticulosis Urinary bladder shows prominent thickening anteriorly measuring up to 16 mm No pelvic mass Advanced disc narrowing L2-L3, L3-L4, L4-L5 IMPRESSION: No pancreatic mass noted 6 mm anterior left para-aortic lymph node 4 mm left lateral periaortic lymph nodes 10 mm nicolette hepatis lymph node
--- NOTE | 2024-09-03 10:30 | PD.EDRME ---
Rapid Medical Screening Exam E Arrival date/time: 09/03/24 10:10 78-year-old female presents to the emergency department today with complaints of abdominal pain. Patient reports that she has pancreatic cancer medical history significant for Whipple procedure last August currently on chemotherapy Chief Complaint: Abdominal Pain Vital signs: Vital Signs Temperature 98.4 F 09/03/24 10:19 Pulse Rate 95 09/03/24 10:19 Respiratory Rate 18 09/03/24 10:19 Blood Pressure 115/69 09/03/24 10:19 Pulse Oximetry (%) 99 09/03/24 10:19 Oxygen Delivery Method Room Air 09/03/24 10:19
[2024-09-03] MEDS: METOCLOPRAMIDE INJ 5 MG/ML VIAL 2 ML 10 MG IVP (10:55)
[2024-09-03 10:57] LABS: Basophils % (Auto) 0 % (0-2.5); Eosinophils % (Auto) 0 % (0-10); Hematocrit 30.6 % (36.0-46.0); Hemoglobin 10.2 g/dL (12.0-16.0); Immature Granulocytes % (Auto) 1 % (0-0); Immature Granulocytes Auto 0.06 Thou/mm3 (0.00-0.00); Lymphocytes # (Auto) 1.4 Thou/mm3 (1.0-4.8); Lymphocytes % (Auto) 12 % (10-50); Mean Corpuscular HGB Conc 33.3 g/dl (31.0-37.0); Mean Corpuscular Hemoglobin 27.1 pg (25.0-35.0); Mean Corpuscular Volume 81 fL (80-100); Monocytes # (Auto) 1.7 Thou/mm3 (0.0-0.8); Monocytes % (Auto) 14 % (0-12); Neutrophils # (Auto) 8.9 Thou/mm3 (1.8-7.7); Neutrophils % (Auto) 74 % (37-80); Nucleated Red Blood Cell % 0 /100 WBC (0); Platelet Count 363 Thou/mm3 (140-440); RDW Standard Deviation 44.9 fL (36.4-46.3); Red Blood Count 3.77 Miln/mm3 (4.00-5.20)
[2024-09-03] MEDS: MORPHINE SULF INJ 10 MG/ML VIAL 4 MG IVP (11:00)
[2024-09-03 11:17] LABS: Alanine Aminotransferase 9 U/L (10-49); Albumin, Serum 3.8 gm/dL (3.4-4.8); Albumin/Globulin Ratio 1.5 (1.2-2.2); Alkaline Phosphatase 144 U/L (46-116); Anion Gap 10 (7-16); Aspartate Amino Transferase 19 U/L (0-34); BUN/Creatinine Ratio 17 Ratio (12-20); Bilirubin,Total 0.6 mg/dL (0.3-1.2); Blood Urea Nitrogen 17 mg/dL (9-23); Calcium 8.6 mg/dL (8.3-10.6); Calcium (Corrected) 8.8 mg/dL (8.5-10.1); Carbon Dioxide 23.7 mMol/L (20.0-31.0); Chloride 107 mMol/L (98-107); Estimated Creatinine Clearance 44.1 mL/min (>60); Globulin 2.5 gm/dL (2.3-3.5); Glucose 110 mg/dL (74-106); Lipase 16 U/L (12-53); Osmolality,Calculated 283 (275-295); Potassium 3.1 mMol/L (3.4-5.1); Sodium 141 mMol/L (136-145); Total Protein 6.3 gm/dL (5.7-8.2); eGFR 58 See Note
--- NOTE | 2024-09-03 11:42 | PD.EDABDPN ---
ED Abdominal Pain RME/HPI General Chief Complaint: Abdominal Pain Stated complaint: STOMACH CRAMPX4 DAYS Time seen by provider: 09/03/24 11:36 Arrival date/time: 09/03/24 10:10 RME / HPI RME / HPI narrative: 78-year-old female with significant medical history of depression, stage III (pT3, pN2, C M0) pancreatic ductal adenocarcinoma,presents to the emergency department today with complaints of abdominal pain. Patient reports history for Whipple procedure last August currently on chemotherapy. Patient was restarted on oral chemotherapy more than a month ago. Abdominal pain has been ongoing for the last 4 days described as cramping with diarrhea, severity moderate. Nonbloody. Denies any fever denies any other complaints. Related Data Home Medications ?Medication ?Instructions ?Recorded ?Confirmed lisinopril 5 mg tablet 5 mg PO QDAY 10/16/23 01/03/24 bupropion HCl 150 mg tablet,12 hr 150 mg PO DAILY 12/31/23 12/31/23 sustained-release capecitabine 500 mg tablet 1,000 mg PO BID 12/31/23 12/31/23 hydrocodone 10 mg-acetaminophen 0.5 tab PO BID PRN PAIN 12/31/23 12/31/23 325 mg tablet [id number] 1 cap PO TID 12/31/23 12/31/23 36,000-114,000-180,000 unit capsule,delay rel (Creon) Previous Rx's ?Medication ?Instructions ?Recorded diazepam 10 mg tablet 10 mg PO BID anxiety #14 tabs 12/30/23 acetaminophen 300 mg-codeine 30 mg 1 tab PO Q12H PRN pain #20 tabs 09/03/24 tablet aluminum-mag hydroxide-simethicone 10 ml PO TID PRN indigestion 09/03/24 400 mg-400 mg-40 mg/5 mL oral susp #3,000 mL (Maalox Maximum Strength) diphenoxylate-atropine 2.5 1 tab PO Q8H PRN diarrhea #20 tabs 09/03/24 mg-0.025 mg tablet (Lomotil) pantoprazole 40 mg tablet,delayed 40 mg PO QDAY #30 tabs 09/03/24 release (Protonix) Allergies Allergy/AdvReac Type Severity Reaction Status Date / Time filgrastim Allergy Severe Rash Verified 09/03/24 10:13 erythromycin base AdvReac Severe pain Verified 09/03/24 10:13 Review of Systems Review of Systems Narrative Review of Systems: Review of system reviewed and within normal limits except mentioned in HPI ED Exam Narrative Physical exam: VITAL SIGNS: Reviewed. GENERAL APPEARANCE: Alert and interactive, follows commands, no acute distress, HEAD AND FACE: Non-traumatic. ENT: PERRL, pink conjunctivitis, eyelid no trauma, Mucous membrane moist. NECK: Supple, nontender, no nuchal rigidity. CHEST: No tenderness, no crepitus, no paradoxical movement, no retractions. LUNGS: Clear, well ventilated, symmetric, no rales, no wheezing, no ronchi, no stridor, good breath sounds bilaterally. HEART: Regular rate, regular rhythm, no murmur, no gallops. ABDOMEN: Soft, positive bowel sounds, nondistended, no guarding, nontender, no rebound, no masses, RECTAL: Deferred. GENITAL: Deferred. NEUROLOGICAL: Gross motor function intact sensory function intact, Appropriate for age. MUSCULOSKELETAL: low back nontender, full range of motion. EXTREMITIES: Nontender, full range of motion. SKIN: Color pink, dry, no rash, no lacerations, no abrasions, no contusions. LYMPHATICS: Deferred. Course Quality Measures none Orders Category Date Time Status CT Screening NOW Care 09/03/24 10:29 Completed Insert IV NOW Care 09/03/24 10:[address] abdomen pelvis w con Stat Exams 09/03/24 10:29 Completed CBC Stat Lab 09/03/24 10:46 Completed Comprehensive Metabolic Panel Stat Lab 09/03/24 10:46 Completed Lipase Stat Lab 09/03/24 10:46 Completed Stool Culture Stat Lab 09/03/24 13:35 Received Stool for WBCs Stat Lab 09/03/24 13:35 Completed c diff [Clostridium Difficile PCR] Stat Lab 09/03/24 13:35 Completed KCL 10% Liq UDC 15 ML Med 09/03/24 12:48 Discontinued 40 meq GT X1 ONE Metoclopramide Inj [Reglan Inj] Med 09/03/24 10:29 Discontinued 10 mg IVP X1 ONE Morphine Inj Med 09/03/24 10:29 Discontinued 4 mg IVP X1 ONE Ringers Lactated 1000 ml [Lactated Ringers] 1,000 ml Med 09/03/24 11:54 Discontinued IV 999 mls/hr mg Hyd/Al Hyd/Katelin Susp [Maalox Susp] Med 09/03/24 13:04 Discontinued 30 ml PO X1 ONE Vital Signs Vital signs: Vital Signs Temperature 98.4 F 09/03/24 10:19 Pulse Rate 95 09/03/24 10:19 Respiratory Rate 18 09/03/24 10:19 Blood Pressure 115/69 09/03/24 10:19 Pulse Oximetry (%) 99 09/03/24 10:19 Oxygen Delivery Method Room Air 09/03/24 10:19 Abdominal Pain MDM MDM Narrative MDM Narrative:: 78-year-old female with significant medical history of depression, stage III (pT3, pN2, C M0) pancreatic ductal adenocarcinoma,presents to the emergency department today with complaints of abdominal pain. Patient reports history for Whipple procedure last August currently on chemotherapy. Patient was restarted on oral chemotherapy more than a month ago. Abdominal pain has been ongoing for the last 4 days described as cramping with diarrhea, severity moderate. Nonbloody. Denies any fever denies any other complaints. CT scan of the abdomen pelvis showed No pancreatic mass noted 6 mm anterior left para-aortic lymph node 4 mm left lateral periaortic lymph nodes 10 mm nicolette hepatis lymph node Tested negative for C. difficile and negative for stool for white cells. CBC showed slight leukocytosis. CMP potassium 3.1. Patient received IV fluids for hydration, potassium replacement, and morphine Patient appears nontoxic and hemodynamically stable. Patient discharged home and instructed to follow-up with primary care provider in 24 to 48 hours. Instructed to return to the emergency department immediately if worsening of symptoms Patient data External records reviewed:: None Clinical information provided by:: patient Social determinants that could affect healthcare access:: none Patient has the following chronic illnesses:: Pancreatic ductal CA How is presenting disease/condition affected by chronic disease/condition?: exacerbated by Evaluation data The following diagnostics were reviewed and interpreted by me:: lab results and radiology exam(s) Lab and/or radiology exams considered but not ordered:: None Interpretation Summary: See results MDM Medications / Prescriptions Medications or Prescriptions considered but not ordered:: None Medication administrations:: Medication Administration History Discontinued Medications Al Hydrox/Mg Hydrox/Simethicone (Mg Hyd/Al Hyd/Katelin (Maalox Reg) Susp 30 Ml Udc) 30 ml PO X1 ONE Stop: 09/03/24 13:05 Last Admin: 09/03/24 13:10 Dose: 30 ml Documented By: ES Lactated Ringer's (Lactated Ringers) 1,000 mls @ 999 mls/hr IV .Q1H1M ONE Stop: 09/03/24 12:54 Last Admin: 09/03/24 12:32 Dose: 999 mls/hr Documented By: ES Metoclopramide HCl (Metoclopramide Inj 5 Mg/Ml Vial 2 Ml) 10 mg IVP X1 ONE; Protocol Stop: 09/03/24 10:30 Last Admin: 09/03/24 10:55 Dose: 10 mg Documented By: FC Morphine Sulfate (Morphine Sulf Inj 10 Mg/Ml Vial) 4 mg IVP X1 ONE Stop: 09/03/24 10:30 Last Admin: 09/03/24 11:00 Dose: 4 mg Documented By: MEHNAZ Potassium Chloride (Potassium Chloride 10% 20 Meq/15 Ml Udc) 40 meq GT X1 ONE Stop: 09/03/24 12:49 Last Admin: 09/03/24 12:58 Dose: 40 meq Documented By: ES Potassium replacement morphine Reglan IV fluids Maalox Consultations Consultation(s) initiated? (list below): No Diagnosis Differential diagnosis abdominal pain: abdominal pain and other (Dehydration, chemo induced diarrhea) Most likely diagnosis given after review of the tests above:: Chemo induced diarrhea Admission Indicated Admission indicated?: not indicated Admission Request Was there a request for admission?: No Disposition Plan Disposition Plan: Discharge Discharge Attestation Discharge Attestation: The patient and all family members were given an opportunity to ask questions and understood the discharge instructions. Discharge instructions specifically effects, indications for sooner follow up or return to the emergency department, and the expected course of current diagnosis. Patient condition: Stable Discharge Plan Plan Patient Disposition: HOME (Self Care) Disposition Comment: Stable Prescriptions/Referrals Prescriptions/Med Rec: New pantoprazole [Protonix] 40 mg tablet,delayed release (DR/EC) 40 mg PO QDAY Qty: 30 0RF alum-mag hydroxide-simeth [Maalox Maximum Strength] 400-400-40 mg/5 mL suspension 10 ml PO TID PRN (Reason: indigestion) Qty: 3000 0RF diphenoxylate-atropine [Lomotil] 2.5-0.025 mg tablet 1 tab PO Q8H PRN (Reason: diarrhea) Qty: 20 0RF acetaminophen-codeine 300-30 mg tablet 1 tab PO Q12H PRN (Reason: pain) Qty: 20 0RF No Action lisinopril 5 mg Tablet 5 mg PO QDAY diazepam 10 mg tablet 10 mg PO BID Qty: 14 0RF hydrocodone-acetaminophen 10-325 mg tablet 0.5 tab PO BID PRN (Reason: PAIN) capecitabine 500 mg tablet 1,000 mg PO BID Rx Instructions: FOR 21 DAYS,THEN OFF FOR 1 WEEK-PER PATIENT OFF FOR THIS WEEK Creon 36,000-114,000- 180,000 unit capsule,delayed release(DR/EC) 1 cap PO TID Patient Comments: TAKE 1 CAPSULE BY MOUTH THREE TIMES A DAY bupropion HCl 150 mg tablet sustained-release 12 hr 150 mg PO DAILY Patient Comments: TAKE 1 TABLET BY MOUTH EVERY DAY IN THE MORNING Referrals: Nahun Sndyer MD [Primary Care Provider] - In 1 week Problem List Clinical Impression: Chemotherapy induced diarrhea, Abdominal pain Patient/Caregiver Discharge Instructions Discharge Activity: activity as tolerated Education Materials: ED Gastroenteritis, Noninfectious Additional Instructions: Thank you for the opportunity for serving you today. You are stable for discharged . You are advised to: Follow-up with your cancer specialist in 1 to 2 days Return to ED for worsening of symptoms Increase oral fluids Take medication as prescribed Print Language: Portuguese Stand Alone Forms: [place] Award Info., Patient Portal Info Letter
[2024-09-03] MEDS: RINGERS LACTATED 1000 ML 1,000 ML 999 ML IV (12:32)
[2024-09-03] MEDS: POTASSIUM CHLORIDE 10% 20 MEQ/15 ML UDC 40 MEQ GT (12:58)
[2024-09-03] MEDS: MG HYD/AL HYD/SIME (Maalox Reg) SUSP 30 ML UDC PO (13:10)
[2024-09-03 14:13] LABS: Stool for WBCs Negative (Negative)
[2024-09-03 15:34] LABS: Clostridium Difficile PCR Negative (Negative)
[2024-09-03 16:00] VITALS: BP 108/56; PULSE 66; RESP 16; TEMP 37; O2SAT 100
== END 2024-09-03 16:43 | disposition home or self-care (01) ==
PROVIDERS: Nurse Practitioner Family; Nurse Practitioner Primary Care; Emergency Provider Emergency Medicine; PCP Internal Medicine Hematology & Oncology
DX: K52.1 Toxic gastroenteritis and colitis (principal); R10.9 Unspecified abdominal pain; F32.A Depression, unspecified; C25.3 Malignant neoplasm of pancreatic duct
CPT/HCPCS: 36415; 74177; 80053; 81001; 83690; 85025; 87015; 87045; 87046; 87205; 87493; 87899; 99285; A4649; J2270; J2765; J7120; Q9967; A9270

== ENCOUNTER 2024-09-13 08:30 | Outpatient (RCR) | payer MEDICARE, SELFPAY ==
--- NOTE | 2024-09-14 01:55 | CTCFLWUP_ITS ---
Patient: TYREL VOGT : 1945 Page 5 of 6 FOLLOW UP NOTE DATE OF SERVICE: 08/26/2024 NAME: TYREL VOGT ACCOUNT: [id number] : 1945 AGE: 78 INTERVAL HISTORY: Tyrel, a patient with a history of cancer, presents for follow-up after starting capecitabine treatment. She recently tested positive for cancer on a Neutera test and has experienced side effects, including blisters in her mouth and on her feet. Despite these side effects, her tumor marker CA-99 has significantly improved to 19. The plan includes continuing capecitabine with the option to reduce the dose if side effects are intolerable, regular monitoring of lab tests, and assistance with social media senior associate for in-home support and a Handicap Parking sticker. Chief Complaint Follow-up for cancer treatment, positive Neutera test result, discussion of capecitabine medication and dosage History of Present Illness Tyrel is a patient with a history of cancer who presents for follow-up regarding her ongoing treatment with capecitabine. She recently tested positive for cancer on a Neutera test, which her primary doctor had ordered. The patient reports that she has been taking capecitabine as prescribed, with an initial dosing schedule of 2 pills for one week, 4 pills for one week, and 3 pills for one week. She is currently taking 6 pills a day (3 in the morning and 3 in the evening). However, she has experienced side effects, including blisters in her mouth and on the bottom of her feet, suggesting the dosage may be too high. Tyrel completed her first cycle of capecitabine, which consisted of 3 weeks of medication followed by a one-week break. She has now started her second cycle at the 3 and 3 dosage. She expresses concern about her ability to tolerate this dosage long-term and is open to adjusting to a lower dose if necessary. The patient inquires about the need for a caregiver, indicating some uncertainty about managing her care independently. She also mentions the possibility of applying for a Handicap [employer] sticker, suggesting some impact on her mobility or daily functioning. Medical History - Cancer, currently in remission - History of positive Neutera test indicating cancer presence Medications and Supplements - Capecitabine - 1500 mg in the morning and 1500 mg in the evening - Taken for 2 weeks, followed by 1 week off - Started on July 20 - Benefits: Tumor markers decreased, JCA 99 improved to 19 - Side effects: Blisters in mouth, sore feet Social History - Living Situation: Patient mentions needing to apply for a caregiver - Occupation: Patient's potential caregiver has a job that they don't want to leave - Pharmacy: Patient gets medication at [facility] in [facility] Review of Systems General: Negative for fever, chills, fatigue. Skin: Positive for blisters on feet. HEENT: Positive for mouth blisters. Musculoskeletal: Positive for sore feet. Psychiatric: Positive for feeling sad. ONCOLOGY HISTORY: DIAGNOSIS: Malignant neoplasm of pancreatic duct [ICD10] C25.3 04/30/2024 CT scan shows no mediastinal lymphadenopathy no pneumonia. 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 S/p Whipple resection (08/21/2023) S/p adjuvant chemotherapy with capecitabine and gemcitabine (11/05/2023??12/25/2019). Unfortunately she is not able to tolerate full recommended doses. Upper abdominal pain due to UTI (01/10/2024) treated with antibiotics. Chemotherapy was discontinued at patient's. Timeline Tyrel Vogt is ENG speaking female with history of hypertension and depression has the following oncology history. April 2023: Ms. Vogt started having upper abdominal discomfort/pain. 07/04/2023: The patient found that she is jaundiced and went to [facility] emergency room. 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 She had stent placed. She also had biliary drain tube. With drainage to the outside. She was in the hospital till July 10, After that she was transferred to [facility]. She was admitted to the Hospital. She had biopsy of the pancreatic mass and discharged home on . Apparently biopsy showed pancreatic cancer. 07/12/2023: Ms. Vogt had CT scan of the chest with contrast? Patient: TYREL VOGT : 1945 Page 2 of 6 08/21/2023: Ms. Vogt had a Whipple resection of the head of the pancreas with resection of the partial antrum of the stomach, liver resection of partial segments 3 and partial segments 4, 5, placement of fiducial markers, removal of foreign body which was a cholecystostomy tube and periportal lymphadenectomy. Patient: TYREL VOGT : 1945 Page 3 of 6 11/05/2023?12/25/2019: The patient was treated with adjuvant capecitabine and gemcitabine. The chemotherapy was discontinued due to severe urosepsis requiring her to be transferred to [facility]. 01/22/2024: Chest x-ray PA and lateral views were obtained due to shortness of breath. Patient had a history of cigarette smoking for about 30 years. OTHER MEDICAL HISTORY/CONDITIONS: Pancreatic ductal adenocarcinoma - dx 08/21/23 HTN Depression Open Whipple partial antrectomy, multiple small liver wedges 3,4,5 and cholecystectomy - 08/21/23 - [facility] FAMILY HISTORY: Mother:?Ovarian?-?dx?70's Sibling:?Sister?-?breast?-?dx?60's SOCIAL HISTORY: Occupational?History:?retired - player development managerit consulting manager?Level:?College Graduate, 2 year degree Marital?Status:? 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 buPROPion HCL - 150 mg 1 tab Daily 2. capecitabine - 500 mg 3 tab 3 tabs twice daily 3. Creon - 36,000-114,000- 180,000 unit 1 Capsule Three times a day 4. DULoxetine - 30 mg 1 Capsule Daily 5. hydrocodone-acetaminophen - 5-325 mg 1 tab every 8 hrs as needed for severe pain only 6. Lomotil - 2.5-0.025 mg 1 tab every 8 hrs as needed for severe diarrhea , 7. omeprazole - 20 mg 1 Capsule In the morning Medications Last Reconciled by Emilia Mitchell MA on 08/26/2024 ALLERGIES: erythromycin base REVIEW OF SYSTEMS: A complete 14-point review of systems was performed and is negative except as noted in interval history. PHYSICAL EXAMINATION: VITAL SIGNS: Temperature?98.2, B/P?146/84, Oxygen?Saturation?99% PAIN: 7 - Between severe and very severe pain ECOG Performance Status: 0 - Asymptomatic and fully active GENERAL APPEARANCE: Appears well, in no apparent distress, appropriately interactive. HEENT: Normocephalic, no temporal wasting, normal conjunctiva, no scleral icterus, normal hearing, lips without lesions, neck normal range of motion. CARDIOVASCULAR: Not assessed. PULMONARY: Normal respiratory effort, no respiratory distress or use of accessory muscles, speaking in full sentences, no tachypnea. EXTREMITIES: No pedal edema or cyanosis. SKIN: Normal skin appearance. NEUROLOGIC: Alert and oriented x4. PSHYCHIATRIC: Appropriate affect, mood normal, behavior normal, intact thought and speech. LABORATORY DATA: I have personally reviewed and interpreted each of the patient?s relevant lab tests, abnormal findings are below: Laboratory, Imaging, and Diagnostic Test Results - General Neutera test: Positive (small amount of cancer detected) - Heart function: Normal - CA-99 (tumor marker): - Latest result: 19 (significant improvement) - Previous results: 40 (July), 42, 51, 52, 62, 69, 49 Date 08/16/24 09/03/24 ??WHITE?BLOOD?COUNT?(Thou/mm3) 6.5 12.0?H ??RED?BLOOD?COUNT?(Miln/mm3) 3.38?L 3.77?L ??HEMOGLOBIN?(gm/dl) 9.0?L 10.2?L ??HEMATOCRIT?(%) 28.0?L 30.6?L ??PLATELET?COUNT?(Thou/mm3) 355 363 ??NEUTROPHILS?%,?AUTO?(%) 58 74 ??LYMPH?%,?AUTO?(%) 27 12 ??NEUTROPHILS,?AUTO?(Thou/mm3) 3.7 8.9?H ??GLUCOSE,RANDOM?(mg/dL) 110?H 110?H ??BLOOD?UREA?NITROGEN?(mg/dL) 18 17 ??CREATININE?(mg/dL) 1.10 1.00 ??SODIUM?(mmol/L) 142 141 ??POTASSIUM?(mmol/L) 4.0 3.1?L ??CHLORIDE?(mmol/L) 107 107 ??CrCl?(CandG)?(ml/min) 49.13 54.05 ??AST/SGOT?(Unit/L) 19 19 ??ALT/SGPT?(Unit/L) 8?L 9?L ??ALKALINE?PHOSPHATASE?(Unit/L) 156?H 144?H ??BILIRUBIN,?TOTAL?(mg/dL) 0.4 0.6 ??PROTEIN?TOTAL?(gm/dl) 6.5 6.3 ??ALBUMIN,?SERUM?(gm/dl) 4.0 3.8 ??GLOBULIN?(gm/dl) 2.5 2.5 ??ALBUMIN/GLOBULIN?RATIO 1.6 1.5 ??CALCIUM,?SERUM?(mg/dL) 9.3 8.6 ??CALCIUM?SERUM?(CORRECTED)?(mg/dL) 9.3 8.8 ASSESSMENT/PLAN: 1. 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 S/p Whipple resection (08/21/2023) Status post adjuvant chemotherapy with gemcitabine and capecitabine from 11/05/2023 to 12/25/2023. Chemotherapy was discontinued due to severe urosepsis Patient and family decided not to further pursue adjuvant chemotherapy and has been on active surveillance. I reviewed CT scan with them and discussed finding. Patient do not have any suspicious lymphadenopathy but noted to have para-aortic lymph node which is suspicious and radiology has recommended PET CT scan Pet scan shows multiple enlarged nodes which are more metabolically active Patient do not want to do biopsy Will start her on capecitabine and follow-up on CA 19-9 Will follow on c119-9 and order hector to see if patient have recurrence Discussed long-term poor prognosis of pancreatic cancer Tyrel, a patient with a history of cancer, presents for follow-up after starting capecitabine treatment, with recent positive Neutera test results and improving tumor markers. Recurrent Cancer Assessment: Patient has a recurrence of cancer, confirmed by a positive Neutera test. The Neutera test detected a small amount of cancer before it was visible on scans. Tumor marker CA-99 has been trending downward, with the most recent value at 19, showing significant improvement from previous values (49, 69, 62, 52, 51, 42, 40). Heart function is reported as normal. Patient had some lymph node involvement previously. Plan: - Continue capecitabine treatment: - Current dose: 1500 mg PO BID (3 tablets BID) for 2 weeks, followed by 1 week off - Patient informed of option to reduce dose to 1000 mg PO BID (2 tablets BID) if unable to tolerate current dose - Advised to continue treatment for at least 6 months if well-tolerated and effective - Monitor for side effects: - Assess for oral blisters and foot blisters - Adjust dosage if side effects become intolerable - Laboratory monitoring: - Neutera test every 3 months (home testing) - Regular blood work and CA-99 tests in clinic - Check iron levels - Imaging: - Schedule repeat scans to assess response to treatment - Follow-up: - Continue treatment for 3-6 months - Reassess treatment plan based on side effects and efficacy - Patient education: - Informed that Neutera test may become negative with treatment - Explained concept of remission and need for continued treatment even if in remission - social services: - Refer to Miriam, the psychiatric social worker, for assistance with in-home support services - Assist with application for [employer] sticker (will sign DMV form at next visit) Port catheter flushed 2. Hypertension 3. Depression CBC CMP ca 19-9 and naterra for MRD ORDERS: Order # Description [id number] Comprehensive Metabolic Panel - 12 + CBC with Auto Diff + CA 19-9 [id number] MD Follow Up 2 Months [id number] Ferritin + Iron Panel + Vitamin B-12 + Folic Acid; Serum + Lactate Dehydrogenase (LDH) + Assay Of Haptoglobin Quant RETURN TO CLINIC: BILLING AND COMPLIANCE: I reviewed external records from providers outside my specialty as summarized above. I spent a total of 50 minutes on this patient?s care on the day of their visit excluding time spent related to any billed procedures. This time includes time spent with the patient as well as time spent documenting in the medical record, reviewing patients records and tests, obtaining history, placing orders, communicating with other healthcare professionals, counseling the patient, family or caregiver, and/or care coordination for the diagnoses above. Electronically Signed by: {Object.Sanct_ID*PnP.NameFL@M}, {Object.Sanct_ID*PnP.Suffix@U} D: {Object.Sanct_Date} T: {Object.Sanct_Time} CC: PCP: Referring: Nahun Snyder This document was completed utilizing speech recognition software. Grammatical errors, random word insertions, pronoun errors, and incomplete sentences are an occasional consequence of this system due to software limitations, ambient noise, and hardware issues. Any formal questions or concerns about the content, text or information contained within the body of this dictation should be directly addressed to the provider for clarification.
--- NOTE | 2024-09-14 02:09 | CTCFLWUP_ITS ---
Patient: TYREL VOGT : 1945 Page 4 of 6 FOLLOW UP NOTE DATE OF SERVICE: 09/09/2024 NAME: TYREL VOGT ACCOUNT: [id number] : 1945 AGE: 78 INTERVAL HISTORY: Tyrel, a patient with a history of cancer, presents for follow-up after starting capecitabine treatment. She recently tested positive for cancer on a Neutera test and has experienced side effects, including blisters in her mouth and on her feet. Despite these side effects, her tumor marker CA-99 has significantly improved to 19. The plan includes continuing capecitabine with the option to reduce the dose if side effects are intolerable, regular monitoring of lab tests, and assistance with dialysis social worker for in-home support and a [employer] Parking sticker. Patient has been having diarrhea. Chief Complaint Follow-up for cancer treatment, positive Neutera test result, discussion of capecitabine medication and dosage and control of pain and discomfort History of Present Illness Tyrel is a patient with a history of cancer who presents for follow-up regarding her ongoing treatment with capecitabine. She recently tested positive for cancer on a Neutera test, which her primary doctor had ordered. The patient reports that she has been taking capecitabine as prescribed, with an initial dosing schedule of 2 pills for one week, 4 pills for one week, and 3 pills for one week. She is currently taking 6 pills a day (3 in the morning and 3 in the evening). However, she has experienced side effects, including blisters in her mouth and on the bottom of her feet, suggesting the dosage may be too high. Tyrel completed her first cycle of capecitabine, which consisted of 3 weeks of medication followed by a one-week break. She has now started her second cycle at the 3 and 3 dosage. She expresses concern about her ability to tolerate this dosage long-term and is open to adjusting to a lower dose if necessary. The patient inquires about the need for a caregiver, indicating some uncertainty about managing her care independently. She also mentions the possibility of applying for a Handic[employer] sticker, suggesting some impact on her mobility or daily functioning. Medical History - Cancer, currently in remission - History of positive Neutera test indicating cancer presence Medications and Supplements - Capecitabine - 1500 mg in the morning and 1500 mg in the evening - Taken for 2 weeks, followed by 1 week off - Started on July 20 - Benefits: Tumor markers decreased, JCA 99 improved to 19 - Side effects: Mild blisters in mouth, sore feet Also have diarrhea. At last visit capecitabine was decreased to 2 tablets twice daily but patient has been taking 3 tablets 2 times daily. Social History - Living Situation: Patient mentions needing to apply for a caregiver - Occupation: Patient's potential caregiver has a job that they don't want to leave - Pharmacy: Patient gets medication at [facility] in [facility] Review of Systems General: Negative for fever, chills, fatigue. Skin: Positive for blisters on feet. HEENT: Positive for mouth blisters. Musculoskeletal: Positive for sore feet. Psychiatric: Positive for feeling sad. ONCOLOGY HISTORY:?[facility] Hx? DIAGNOSIS: Malignant neoplasm of pancreatic duct [ICD10] C25.3 04/30/2024 CT scan shows no mediastinal lymphadenopathy no pneumonia. 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 S/p Whipple resection (08/21/2023) S/p adjuvant chemotherapy with capecitabine and gemcitabine (11/05/2023??12/25/2019). Unfortunately she is not able to tolerate full recommended doses. Upper abdominal pain due to UTI (01/10/2024) treated with antibiotics. Chemotherapy was discontinued at patient's. Timeline Tyrel Vogt is ENG speaking female with history of hypertension and depression has the following oncology history. April 2023: Ms. Vogt started having upper abdominal discomfort/pain. 07/04/2023: The patient found that she is jaundiced and went to [facility] emergency room. 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 She had stent placed. She also had biliary drain tube. With drainage to the outside. She was in the hospital till July 10, After that she was transferred to [facility]. She was admitted to the Hospital. She had biopsy of the pancreatic mass and discharged home on . Apparently biopsy showed pancreatic cancer. 07/12/2023: Ms. Vogt had CT scan of the chest with contrast? Patient: TYREL VOGT : 1945 Page 2 of 6 08/21/2023: Ms. Vogt had a Whipple resection of the head of the pancreas with resection of the partial antrum of the stomach, liver resection of partial segments 3 and partial segments 4, 5, placement of fiducial markers, removal of foreign body which was a cholecystostomy tube and periportal lymphadenectomy. Patient: TYREL VOGT : 1945 Page 3 of 6 11/05/2023?12/25/2019: The patient was treated with adjuvant capecitabine and gemcitabine. The chemotherapy was discontinued due to severe urosepsis requiring her to be transferred to [facility]. 01/22/2024: Chest x-ray PA and lateral views were obtained due to shortness of breath. Patient had a history of cigarette smoking for about 30 years. OTHER MEDICAL HISTORY/CONDITIONS: Pancreatic ductal adenocarcinoma - dx 08/21/23 HTN Depression Open Whipple partial antrectomy, multiple small liver wedges 3,4,5 and cholecystectomy - 08/21/23 [place] [facility] [place]ILY HISTORY: Mother:?Ovarian?-?dx?70's Sibling:?Sister?-?breast?-?dx?60's SOCIAL HISTORY: Occupational?History:?retired - human resources district managermanager freelance?Level:?College Graduate, 2 year degree Marital?Status:? Tobacco Use:?Quit 3 months ago - smoked 1pack/week x 30yrs ETOH?Use:?Denies Drug?Note:?Denies Social History Note:?Son and family live with pt [employer] HISTORY: Menarche?-?Age:?17 Menopause:?45 :?3 Live?Births:?3 Age?1st?:?19 MEDICATIONS: 1. buPROPion HCL - 150 mg 1 tab Daily 2. capecitabine - 500 mg 3 tab 3 tabs twice daily 3. Creon - 36,000-114,000- 180,000 unit 1 Capsule Three times a day 4. DULoxetine - 30 mg 1 Capsule Daily 5. hydrocodone-acetaminophen - 5-325 mg 1 tab every 8 hrs as needed for severe pain only 6. Lomotil - 2.5-0.025 mg 1 tab every 8 hrs as needed for severe diarrhea , 7. omeprazole - 20 mg 1 Capsule In the morning?Palabra Meds? Medications Last Reconciled by Emilia Mitchell MA on 08/26/2024 ALLERGIES: erythromycin base REVIEW OF SYSTEMS: A complete 14-point review of systems was performed and is negative except as noted in interval history. PHYSICAL EXAMINATION:?[facility] PE? VITAL SIGNS: Temperature?99.1, B/P?137/79, Oxygen?Saturation?96% Weight?155?lbs (Change?since?08/16/24:?-5.2?lbs) PAIN: 7 - Between severe and very severe pain GENERAL APPEARANCE: Appears well, in no apparent distress, appropriately interactive. HEENT: Normocephalic, no temporal wasting, normal conjunctiva, no scleral icterus, normal hearing, lips without lesions, neck normal range of motion. CARDIOVASCULAR: Not assessed. PULMONARY: Normal respiratory effort, no respiratory distress or use of accessory muscles, speaking in full sentences, no tachypnea. EXTREMITIES: No pedal edema or cyanosis. SKIN: Normal skin appearance. NEUROLOGIC: Alert and oriented x4. PSHYCHIATRIC: Appropriate affect, mood normal, behavior normal, intact thought and speech. LABORATORY DATA: I have personally reviewed and interpreted each of the patient?s relevant lab tests, abnormal findings are below: Date 08/16/24 09/03/24 ??WHITE?BLOOD?COUNT?(Thou/mm3) ? 12.0?H ??RED?BLOOD?COUNT?(Miln/mm3) ? 3.77?L ??HEMOGLOBIN?(gm/dl) ? 10.2?L ??HEMATOCRIT?(%) ? 30.6?L ??PLATELET?COUNT?(Thou/mm3) ? 363 ??NEUTROPHILS?%,?AUTO?(%) ? 74 ??LYMPH?%,?AUTO?(%) ? 12 ??NEUTROPHILS,?AUTO?(Thou/mm3) ? 8.9?H ??GLUCOSE,RANDOM?(mg/dL) 110?H 110?H ??BLOOD?UREA?NITROGEN?(mg/dL) 18 17 ??CREATININE?(mg/dL) 1.10 1.00 ??SODIUM?(mmol/L) 142 141 ??POTASSIUM?(mmol/L) 4.0 3.1?L ??CHLORIDE?(mmol/L) 107 107 ??CrCl?(CandG)?(ml/min) 49.13 54.05 ??AST/SGOT?(Unit/L) 19 19 ??ALT/SGPT?(Unit/L) 8?L 9?L ??ALKALINE?PHOSPHATASE?(Unit/L) 156?H 144?H ??BILIRUBIN,?TOTAL?(mg/dL) 0.4 0.6 ??PROTEIN?TOTAL?(gm/dl) 6.5 6.3 ??ALBUMIN,?SERUM?(gm/dl) 4.0 3.8 ??GLOBULIN?(gm/dl) 2.5 2.5 ??ALBUMIN/GLOBULIN?RATIO 1.6 1.5 ??CALCIUM,?SERUM?(mg/dL) 9.3 8.6 ??CALCIUM?SERUM?(CORRECTED)?(mg/dL) 9.3 8.8 ??CA?19-9?(Unit/mL) 19.00 ? ASSESSMENT/PLAN:?Etelvina Snyder Assessment/Plan? 1. 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 S/p Whipple resection (08/21/2023) Status post adjuvant chemotherapy with gemcitabine and capecitabine from 11/05/2023 to 12/25/2023. Chemotherapy was discontinued due to severe urosepsis Patient and family decided not to further pursue adjuvant chemotherapy and has been on active surveillance. I reviewed CT scan with them and discussed finding. Patient do not have any suspicious lymphadenopathy but noted to have para-aortic lymph node which is suspicious and radiology has recommended PET CT scan Pet scan shows multiple enlarged nodes which are more metabolically active Patient do not want to do biopsy Will start her on capecitabine and follow-up on CA 19-9 Will follow on c119-9 and order hector to see if patient have recurrence Discussed equipment operator intermodal yard poor prognosis of pancreatic cancer Tyrel, a patient with a history of cancer, presents for follow-up after starting capecitabine treatment, with recent positive Neutera test results and improving tumor markers. Recurrent Cancer Assessment: Patient has a recurrence of cancer, confirmed by a positive Neutera test. The Neutera test detected a small amount of cancer before it was visible on scans. Tumor marker CA-99 has been trending downward, with the most recent value at 19, showing significant improvement from previous values (49, 69, 62, 52, 51, 42, 40). Heart function is reported as normal. Patient had some lymph node involvement previously. Plan: - Continue capecitabine treatment: - Current dose: 1500 mg PO BID (3 tablets BID) for 2 weeks, followed by 1 week off - Patient informed of option to reduce dose to 1000 mg PO BID (2 tablets BID) if unable to tolerate current dose - Advised to continue treatment for at least 6 months if well-tolerated and effective - Monitor for side effects: - Assess for oral blisters and foot blisters - Adjust dosage if side effects become intolerable. Had advised to take only 2 tablets twice daily. Will send new prescription with the change in dose as patient did not follow the verbal command at the last visit - Laboratory monitoring: - Neutera test every 3 months (home testing) - Regular blood work and CA-99 tests in clinic - Check iron levels - Imaging: - Schedule repeat scans to assess response to treatment - Follow-up: - Continue treatment for 3-6 months - Reassess treatment plan based on side effects and efficacy - Patient education: - Informed that Neutera test may become negative with treatment - Explained concept of remission and need for continued treatment even if in remission - coordinator of library services: - Refer to Miriam, the social security assessor, for assistance with in-home support services - Assist with application for [employer] Parking sticker (will sign DMV form at next visit) Port catheter flushed 2. Hypertension 3. Depression CBC CMP ca 19-9 and naterra for MRD RETURN TO CLINIC: BILLING AND COMPLIANCE: I reviewed external records from providers outside my specialty as summarized above. I spent a total of 50 minutes on this patient?s care on the day of their visit excluding time spent related to any billed procedures. This time includes time spent with the patient as well as time spent documenting in the medical record, reviewing patients records and tests, obtaining history, placing orders, communicating with other healthcare professionals, counseling the patient, family or caregiver, and/or care coordination for the diagnoses above. Electronically Signed by: Nahun Snyder MD T: 2:06 AM CC: PCP: Referring: Nahun Snyder This document was completed utilizing speech recognition software. Grammatical errors, random word insertions, pronoun errors, and incomplete sentences are an occasional consequence of this system due to software limitations, ambient noise, and hardware issues. Any formal questions or concerns about the content, text or information contained within the body of this dictation should be directly addressed to the provider for clarification.
== END 2024-09-15 23:59 | disposition home or self-care (01) ==
LOC: SCTC 08:30
PROVIDERS: Referring Provider Internal Medicine Hematology & Oncology; Visit Provider Internal Medicine Hematology & Oncology
DX: C25.3 Malignant neoplasm of pancreatic duct (principal); Z90.410 Acquired total absence of pancreas; Z92.21 Personal history of antineoplastic chemotherapy; R59.9 Enlarged lymph nodes, unspecified; I10 Essential (primary) hypertension; F32.A Depression, unspecified
CPT/HCPCS: 99212; 99213; G0463

== ENCOUNTER 2024-09-16 09:55 | Outpatient (RCR) | payer MEDICARE, SELFPAY ==
[2024-09-16 10:51] LABS: Basophils % (Auto) 0 % (0-2.5); Eosinophils # (Auto) 0.2 Thou/mm3 (0.0-0.5); Eosinophils % (Auto) 2 % (0-10); Hematocrit 26.7 % (36.0-46.0); Immature Granulocytes % (Auto) 0 % (0-0); Immature Granulocytes Auto 0.05 Thou/mm3 (0.00-0.00); Lymphocytes # (Auto) 1.8 Thou/mm3 (1.0-4.8); Lymphocytes % (Auto) 15 % (10-50); Mean Corpuscular HGB Conc 32.6 g/dl (31.0-37.0); Mean Corpuscular Hemoglobin 27.3 pg (25.0-35.0); Mean Corpuscular Volume 84 fL (80-100); Monocytes # (Auto) 0.8 Thou/mm3 (0.0-0.8); Monocytes % (Auto) 6 % (0-12); Neutrophils # (Auto) 9.1 Thou/mm3 (1.8-7.7); Neutrophils % (Auto) 76 % (37-80); Nucleated Red Blood Cell % 0 /100 WBC (0); Platelet Count 411 Thou/mm3 (140-440); RDW Standard Deviation 53.2 fL (36.4-46.3); Red Blood Count 3.19 Miln/mm3 (4.00-5.20); White Blood Count 11.9 Thou/mm3 (3.6-11.0)
[2024-09-16 11:14] LABS: Alanine Aminotransferase 12 U/L (10-49); Albumin, Serum 3.4 gm/dL (3.4-4.8); Albumin/Globulin Ratio 1.5 (1.2-2.2); Alkaline Phosphatase 141 U/L (46-116); Anion Gap 12 (7-16); Aspartate Amino Transferase 23 U/L (0-34); BUN/Creatinine Ratio 10 Ratio (12-20); Bilirubin,Total 0.5 mg/dL (0.3-1.2); Blood Urea Nitrogen 10 mg/dL (9-23); Calcium 8.5 mg/dL (8.3-10.6); Carbon Dioxide 22.9 mMol/L (20.0-31.0); Chloride 110 mMol/L (98-107); Ferritin 7 ng/mL (7.3-270.7); Globulin 2.2 gm/dL (2.3-3.5); Glucose 114 mg/dL (74-106); Iron 33 mcg/dL (50-170); LDH (Lactate Dehydrogenase) 192 U/L (120-246); Osmolality,Calculated 288 (275-295); Percent Iron Saturation 9 % (20-55); Sodium 145 mMol/L (136-145); Total Iron Binding Capacity 342 mcg/dL (250-425); Total Protein 5.6 gm/dL (5.7-8.2); Unsaturated Iron Binding 309 (225-295); eGFR 58 See Note
[2024-09-16 11:17] LABS: Folate > 24.00 ng/mL (>5.38); Vitamin B12 933 pg/mL (211-911)
[2024-09-16 11:32] LABS: Hemoglobin 8.7 g/dL (12.0-16.0)
[2024-09-22 06:51] LABS: CA 19-9 Antigen* 21 U/mL (<34); Haptoglobin* 126 mg/dL (43-212)
== END 2024-10-16 23:59 | disposition home or self-care (01) ==
LOC: SCTC 09:55
PROVIDERS: PCP Internal Medicine; Referring Provider Internal Medicine; Visit Provider Internal Medicine Hematology & Oncology
DX: C25.3 Malignant neoplasm of pancreatic duct (principal); I10 Essential (primary) hypertension; F32.A Depression, unspecified; Z92.21 Personal history of antineoplastic chemotherapy
CPT/HCPCS: 36591; 80053; 82607; 82728; 82746; 83010; 83540; 83550; 83615; 85025; 86301; A4216; J1642

== ENCOUNTER → 2024-11-18 | Outpatient (CLI) | payer MEDICARE, SELFPAY ==
--- NOTE | 2024-11-18 13:20 | XR_ITS ---
Examination: PA lateral chest 2 views TECHNIQUE: Upright PA lateral chest 2 views Date and time: November 18, 2024 1331 hours Comparison 01/22/2024 INDICATIONS: Diagnosis malignant neoplasm pancreatic duct, chest pain this week. FINDINGS: Normal heart size. Lungs are clear. Right internal jugular Port-A-Cath tip SVC satisfactory position Moderate osteopenia IMPRESSION: No active disease
--- NOTE | 2024-11-18 14:00 | ECHO_ITS ---
Transthoracic Echo Report Ht (in): 66 Wt (lb): 157 Exam Location: Echo Lab Status: Preadmit Refractory Worker: Nika Jones Indications: Procedure Performed: BP: / HR: Technical Quality: Adequate MEASUREMENTS (Male / Female) Normal Values 2D ECHO LV Diastolic Diameter PLAX 5.5 cm 4.2 - 5.9 / 3.9 - 5.3 cm LV Systolic Diameter PLAX 4.2 cm IVS Diastolic Thickness 0.5 cm 0.6 - 1.0 / 0.6 - 0.9 cm LVPW Diastolic Thickness 0.6 cm 0.6 - 1.0 / 0.6 - 0.9 cm LV Relative Wall Thickness 0.2 LVOT Diameter 2.2 cm LA Volume Index 31.1 cm?/m? 16 - 28 cm?/m? DOPPLER AV Peak Velocity 76.0 cm/s AV Peak Gradient 2.3 mmHg LVOT Peak Velocity 83.4 cm/s LVOT Peak Gradient 2.8 mmHg AV Area Cont Eq pk 4.2 cm? LV E' Lateral Velocity 6.5 cm/s LV E' Septal Velocity 4.6 cm/s PV Peak Velocity 117.0 cm/s PV Peak Gradient 5.5 mmHg FINDINGS Left Ventricle Normal left ventricular size, wall thickness, systolic function with no obvious regional wall motion abnormalities. Normal left ventricular diastolic filling pattern for age. The ejection fraction is visually estimated at 55 %. Right Ventricle The right ventricle is moderately enlarged. RVSP can not be determined due to innadequate tricuspid signal. Left Atrium The left atrium is normal by two-dimensional, color flow and Doppler imaging with no structural abnormalities, no thrombus formation present. Right Atrium The right atrium is normal by two-dimensional imaging, color flow and Doppler imaging with no structural abnormalities, no thrombus formation present. Atrial Septum The interatrial septum appears normal with no evidence of a shunt. Aorta The aorta is normal by two-dimensional, color flow and Doppler interrogation. Mitral Valve Mild mitral valve annulus calcification without stenosis. Mild to moderate eccentric mitral regurgitation. Aortic Valve The aortic valve is trileaflet and normal by two-dimensional, color flow and Doppler interrogation. There is no significant aortic valve regurgitation. Tricuspid Valve The tricuspid valve is normal by two-dimensional, color flow and Doppler interrogation. There is trace tricuspid regurgitation. Pulmonic Valve The pulmonic valve is not well visualized. There is no significant pulmonic valve regurgitation. Vessels The pulmonary artery appears normal. The inferior vena cava pulmonary and hepatic veins appear normal. Pericardium The pericardium is normal by two-dimensional imaging. There is no significant pericardial effusion. CONCLUSIONS Indications: Pancreatic Cancer The transthoracic study is normal by two-dimensional, color flow imaging and Doppler interrogation. Normal left ventricular size and function. Approximate ejection fraction is 55%. Mitral valve thickening with evidence of mild to moderate mitral regurgitation. Mild tricuspid regurgitation. Brina Turpin (Electronically Signed) Final Date: 19 November 2024 16:26
== END | disposition home or self-care (01) ==
PROVIDERS: Referring Provider Internal Medicine Hematology & Oncology; Visit Provider Internal Medicine Hematology & Oncology
DX: I08.1 Rheumatic disorders of both mitral and tricuspid valves (principal); R07.9 Chest pain, unspecified; C25.3 Malignant neoplasm of pancreatic duct
CPT/HCPCS: 71046; 93306

== ENCOUNTER 2024-12-16 12:46 | Outpatient (RCR) | payer MEDICARE, SELFPAY ==
[2024-12-15 09:45] LABS: Basophils # (Auto) 0.1 Thou/mm3 (0.0-0.2); Basophils % (Auto) 1 % (0-2.5); Eosinophils # (Auto) 0.2 Thou/mm3 (0.0-0.5); Eosinophils % (Auto) 3 % (0-10); Hematocrit 31.4 % (36.0-46.0); Hemoglobin 10.3 g/dL (12.0-16.0); Immature Granulocytes Auto 0.02 Thou/mm3 (0.00-0.00); Lymphocytes # (Auto) 1.8 Thou/mm3 (1.0-4.8); Lymphocytes % (Auto) 24 % (10-50); Mean Corpuscular HGB Conc 32.8 g/dl (31.0-37.0); Mean Corpuscular Hemoglobin 31.4 pg (25.0-35.0); Mean Corpuscular Volume 96 fL (80-100); Monocytes # (Auto) 0.7 Thou/mm3 (0.0-0.8); Monocytes % (Auto) 10 % (0-12); Neutrophils # (Auto) 4.7 Thou/mm3 (1.8-7.7); Neutrophils % (Auto) 62 % (37-80); Nucleated Red Blood Cell # 0.00 Thou/mm3 (0.00-0.00); Nucleated Red Blood Cell % 0 /100 WBC (0); Platelet Count 330 Thou/mm3 (140-440); RDW Standard Deviation 89.2 fL (36.4-46.3); Red Blood Count 3.28 Miln/mm3 (4.00-5.20); White Blood Count 7.5 Thou/mm3 (3.6-11.0)
[2024-12-15 10:10] LABS: Alanine Aminotransferase 13 U/L (10-49); Albumin, Serum 4.3 gm/dL (3.4-4.8); Albumin/Globulin Ratio 1.7 (1.2-2.2); Alkaline Phosphatase 159 U/L (46-116); Anion Gap 7 (7-16); Aspartate Amino Transferase 23 U/L (0-34); BUN/Creatinine Ratio 9 Ratio (12-20); Bilirubin,Total 0.6 mg/dL (0.3-1.2); Blood Urea Nitrogen 11 mg/dL (9-23); Calcium 9.0 mg/dL (8.3-10.6); Calcium (Corrected) 9.0 mg/dL (8.5-10.1); Carbon Dioxide 23.9 mMol/L (20.0-31.0); Chloride 109 mMol/L (98-107); Creatinine (Component) 1.2 mg/dL (0.6-1.3); Ferritin 11 ng/mL (7.3-270.7); Folate > 24.00 ng/mL (>5.38); Globulin 2.5 gm/dL (2.3-3.5); Glucose 108 mg/dL (74-106); Iron 51 mcg/dL (50-170); LDH (Lactate Dehydrogenase) 168 U/L (120-246); Osmolality,Calculated 279 (275-295); Percent Iron Saturation 11 % (20-55); Potassium 3.8 mMol/L (3.4-5.1); Sodium 140 mMol/L (136-145); Total Iron Binding Capacity 432 mcg/dL (250-425); Total Protein 6.8 gm/dL (5.7-8.2); Unsaturated Iron Binding 381 (225-295); Vitamin B12 842 pg/mL (211-911); eGFR 46 See Note
--- NOTE | 2024-12-20 05:50 | CTCFLWUP_ITS ---
Patient: TYREL VOGT : 1945 Page 4 of 5 FOLLOW UP NOTE DATE OF SERVICE: 12/16/2024 NAME: TYREL VOGT ACCOUNT: [id number] : 1945 AGE: 79 INTERVAL HISTORY: Patient is doing well. She is very happy that her CT DNA testing is negative. She continues to use capecitabine. Major side effect is peeling of the palms and soles of feet. Patient is also complaining of body ache for which she uses [place] as needed. Medical History - Cancer, currently in remission - History of positive Neutera test indicating cancer presence Medications and Supplements - Capecitabine - 1500 mg in the morning and 1500 mg in the evening - Taken for 2 weeks, followed by 1 week off - Started on July 20 - Benefits: Tumor markers decreased, JCA 99 improved to 19 - Side effects: Mild blisters in mouth, sore feet Also have diarrhea. At last visit capecitabine was decreased to 2 tablets twice daily but patient has been taking 3 tablets 2 times daily. Social History - Living Situation: Patient mentions needing to apply for a caregiver - Occupation: Patient's potential caregiver has a job that they don't want to leave - Pharmacy: Patient gets medication at [facility] in [facility] Review of Systems General: Negative for fever, chills, fatigue. Skin: Positive for blisters on feet. HEENT: Positive for mouth blisters. Musculoskeletal: Positive for sore feet. Psychiatric: Positive for feeling sad. ONCOLOGY HISTORY: DIAGNOSIS: Malignant neoplasm of pancreatic duct [ICD10] C25.3 04/30/2024 CT scan shows no mediastinal lymphadenopathy no pneumonia. 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 S/p Whipple resection (08/21/2023) S/p adjuvant chemotherapy with capecitabine and gemcitabine (11/05/2023??12/25/2019). Unfortunately she is not able to tolerate full recommended doses. Upper abdominal pain due to UTI (01/10/2024) treated with antibiotics. Chemotherapy was discontinued at patient's. Timeline Tyrel Vogt is ENG speaking female with history of hypertension and depression has the following oncology history. April 2023: Ms. Vogt started having upper abdominal discomfort/pain. 07/04/2023: The patient found that she is jaundiced and went to [facility] emergency room. 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 She had stent placed. She also had biliary drain tube. With drainage to the outside. She was in the hospital till July 10, After that she was transferred to [facility]. She was admitted to the Hospital. She had biopsy of the pancreatic mass and discharged home on . Apparently biopsy showed pancreatic cancer. 07/12/2023: Ms. Vogt had CT scan of the chest with contrast? Patient: TYREL VOGT. : 1945 Page 2 of 6 08/21/2023: Ms. Vogt had a Whipple resection of the head of the pancreas with resection of the partial antrum of the stomach, liver resection of partial segments 3 and partial segments 4, 5, placement of fiducial markers, removal of foreign body which was a cholecystostomy tube and periportal lymphadenectomy. Patient: TYREL VOGT : 1945 Page 3 of 6 11/05/2023?12/25/2019: The patient was treated with adjuvant capecitabine and gemcitabine. The chemotherapy was discontinued due to severe urosepsis requiring her to be transferred to [facility]. 01/22/2024: Chest x-ray PA and lateral views were obtained due to shortness of breath. Patient had a history of cigarette smoking for about 30 years. OTHER MEDICAL HISTORY/CONDITIONS: Pancreatic ductal adenocarcinoma - dx 08/21/23 HTN Depression Open Whipple partial antrectomy, multiple small liver wedges 3,4,5 and cholecystectomy - 08/21/23 - [facility] FAMILY HISTORY: Mother:?Ovarian?-?dx?70's Sibling:?Sister?-?breast?-?dx?60's SOCIAL HISTORY: Occupational?History:?retired - senior operations managermanager of business operations?Level:?College Graduate, 2 year degree Marital?Status:? Tobacco Use:?Quit 3 months ago - smoked 1pack/week x 30yrs ETOH?Use:?Denies Drug?Note:?Denies Social History Note:?Son and family live with pt OUTPATIENT PHLEBOTOMIST HISTORY: Menarche?-?Age:?17 Menopause:?45 :?3 Live?Births:?3 Age?1st?:?19 MEDICATIONS: 1. B12 Active - 1,000 mcg 1 tab Daily 2. buPROPion HCl - 300 mg 1 tab Daily 3. capecitabine - 500 mg 3 tab 3 tabs twice daily 4. Centrum Women - 18-400 mg-mcg tab 5. Creon - 36,000-114,000- 180,000 unit 1 Capsule Three times a day 6. DULoxetine - 30 mg 1 Capsule Daily 7. hydrocodone-acetaminophen - 5-325 mg 1 tab every 8 hrs as needed for severe pain only 8. Lomotil - 2.5-0.025 mg 1 tab every 8 hrs as needed for severe diarrhea , 9. Lomotil - 2.5-0.025 mg 1 tab As directed 10. pantoprazole - 40 mg 1 tab Daily Medications Last Reconciled by Harleen Arce MD on 12/16/2024 ALLERGIES: erythromycin base REVIEW OF SYSTEMS: A complete 14-point review of systems was performed and is negative except as noted in interval history. PHYSICAL EXAMINATION: VITAL SIGNS: Temperature?97, B/P?146/85, Oxygen?Saturation?98% Weight?161?lbs (Change?since?12/15/24:?-0.2?lbs) PAIN: 0 - No pain ECOG Performance Status: 0 - Asymptomatic and fully active GENERAL APPEARANCE: Appears well, in no apparent distress, appropriately interactive. HEENT: Normocephalic, no temporal wasting, normal conjunctiva, no scleral icterus, normal hearing, lips without lesions, neck normal range of motion. CARDIOVASCULAR: Not assessed. PULMONARY: Normal respiratory effort, no respiratory distress or use of accessory muscles, speaking in full sentences, no tachypnea. EXTREMITIES: No pedal edema or cyanosis. SKIN: Normal skin appearance. NEUROLOGIC: Alert and oriented x4. PSHYCHIATRIC: Appropriate affect, mood normal, behavior normal, intact thought and speech. LABORATORY DATA: I have personally reviewed and interpreted each of the patient?s relevant lab tests, abnormal findings are below: Date 12/15/24 ??WHITE?BLOOD?COUNT?(Thou/mm3) 7.5 ??RED?BLOOD?COUNT?(Miln/mm3) 3.28?L ??HEMOGLOBIN?(gm/dl) 10.3?L ??HEMATOCRIT?(%) 31.4?L ??PLATELET?COUNT?(Thou/mm3) 330 ??NEUTROPHILS?%,?AUTO?(%) 62 ??LYMPH?%,?AUTO?(%) 24 ??NEUTROPHILS,?AUTO?(Thou/mm3) 4.7 ??GLUCOSE,RANDOM?(mg/dL) 108?H ??BLOOD?UREA?NITROGEN?(mg/dL) 11 ??CREATININE?(mg/dL) 1.20 ??SODIUM?(mmol/L) 140 ??POTASSIUM?(mmol/L) 3.8 ??CHLORIDE?(mmol/L) 109?H ??CrCl?(CandG)?(ml/min) 44.60 ??AST/SGOT?(Unit/L) 23 ??ALT/SGPT?(Unit/L) 13 ??ALKALINE?PHOSPHATASE?(Unit/L) 159?H ??BILIRUBIN,?TOTAL?(mg/dL) 0.6 ??PROTEIN?TOTAL?(gm/dl) 6.8 ??ALBUMIN,?SERUM?(gm/dl) 4.3 ??GLOBULIN?(gm/dl) 2.5 ??ALBUMIN/GLOBULIN?RATIO 1.7 ??CALCIUM,?SERUM?(mg/dL) 9.0 ??CALCIUM?SERUM?(CORRECTED)?(mg/dL) 9.0 ??LDH,?TOTAL?(Unit/L) 168 ??TOTAL?IRON?BINDING?CAP?(S*)?(mcg/dL) 432?H ??UNBOUND?IBC?(mcg/dL) 381?H ASSESSMENT/PLAN: 1. 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 S/p Whipple resection (08/21/2023) Status post adjuvant chemotherapy with gemcitabine and capecitabine from 11/05/2023 to 12/25/2023. Chemotherapy was discontinued due to severe urosepsis Patient and family decided not to further pursue adjuvant chemotherapy and has been on active surveillance Pet scan shows multiple enlarged nodes which are more metabolically active Patient do not want to do biopsy Patient has been on capecitabine doing well Matera is negative Will continue capecitabine - Current dose: 1000 mg mg PO BID (3 tablets BID) for 2 weeks, followed by 1 week off - Advised to continue treatment for at least 6 months if well-tolerated and effective - Monitor for side effects: - Assess for oral blisters and foot blisters Moisturizing daily use of emollient instead of soap - Laboratory monitoring: - Chance test every 3 months (home testing) - Regular blood work and CA-99 tests in clinic #2 iron deficiency Patient has severe iron deficiency Ferritin less than 20 Will start IV iron Unable to tolerate p.o. iron as patient already have nausea to chemotherapy #3 pain Will continue [place] as needed during chemotherapy CBC CMP ca 19-9 and naterra for MRD ORDERS: Order # Description [id number] Follow Up 3 Months RETURN TO CLINIC: I reviewed the diagnosis, prognosis, and recommended treatment/procedure options with the patient (and/or their legal senior account representative), including the potential benefits, risks, side effects and alternative therapies. We also discussed the option of no treatment and the possibility of clinical trial participation, if applicable. All questions were addressed, and they demonstrated understanding. They provided informed consent to proceed with the proposed plan of care. BILLING AND COMPLIANCE: I reviewed external records from providers outside my specialty as summarized above. I spent a total of 50 minutes on this patient?s care on the day of their visit excluding time spent related to any billed procedures. This time includes time spent with the patient as well as time spent documenting in the medical record, reviewing patients records and tests, obtaining history, placing orders, communicating with other healthcare professionals, counseling the patient, family or caregiver, and/or care coordination for the diagnoses above. Electronically Signed by: {Object.Sanct_ID*[email or web address]@M}, {Object.Sanct_ID*PnP.Suffix@U} D: {Object.Sanct_Date} T: {Object.Sanct_Time} CC: PCP: Referring: Adriano Rankin This document was completed utilizing speech recognition software. Grammatical errors, random word insertions, pronoun errors, and incomplete sentences are an occasional consequence of this system due to software limitations, ambient noise, and hardware issues. Any formal questions or concerns about the content, text or information contained within the body of this dictation should be directly addressed to the provider for clarification.
[2024-12-21 14:09] LABS: CA 19-9 Antigen* 24 U/mL (<34); Haptoglobin* 97 mg/dL (43-212)
== END 2024-12-16 23:59 | disposition home or self-care (01) ==
LOC: SCTC 12:46
PROVIDERS: PCP Internal Medicine; Referring Provider Internal Medicine; Visit Provider Internal Medicine Hematology & Oncology
DX: C25.3 Malignant neoplasm of pancreatic duct (principal); R59.9 Enlarged lymph nodes, unspecified; Z92.21 Personal history of antineoplastic chemotherapy; E61.1 Iron deficiency
CPT/HCPCS: 36591; 80053; 82607; 82728; 82746; 83010; 83540; 83550; 83615; 85025; 86301; 99212; A4216; J1642; G0463

== ENCOUNTER 2025-01-13 12:50 | Outpatient (RCR) | payer MEDICARE, SELFPAY | END 2025-01-16 23:59 | disposition home or self-care (01) | LOC: SCTC 12:50 | PROVIDERS: PCP Student in an Organized Health Care Education/Training Program; Referring Provider Student in an Organized Health Care Education/Training Program; Visit Provider Internal Medicine Hematology & Oncology | DX: E61.1 Iron deficiency (principal); C25.3 Malignant neoplasm of pancreatic duct; Z92.21 Personal history of antineoplastic chemotherapy | CPT/HCPCS: 96365; 96375; A4216; J1200; J1642; J1756; J2919; J3490; J7040; J7050; A9270 ==

== ENCOUNTER 2025-02-10 12:58 | Outpatient (RCR) | payer MEDICARE, SELFPAY | END 2025-02-15 23:59 | disposition home or self-care (01) | LOC: SCTC 12:58 | PROVIDERS: PCP Student in an Organized Health Care Education/Training Program; Referring Provider Student in an Organized Health Care Education/Training Program; Visit Provider Internal Medicine Hematology & Oncology | DX: E61.1 Iron deficiency (principal); C25.3 Malignant neoplasm of pancreatic duct | CPT/HCPCS: 96365; 96375; A4216; J1642; J1756; J2919; J3490; J7040; A9270 ==

== ENCOUNTER 2025-03-17 12:52 | Outpatient (RCR) | payer MEDICARE, SELFPAY ==
[2025-03-03 13:46] LABS: Basophils # (Auto) 0.1 Thou/mm3 (0.0-0.2); Basophils % (Auto) 1 % (0-2.5); Eosinophils # (Auto) 0.3 Thou/mm3 (0.0-0.5); Eosinophils % (Auto) 4 % (0-10); Hematocrit 37.8 % (36.0-46.0); Hemoglobin 12.9 g/dL (12.0-16.0); Immature Granulocytes Auto 0.03 Thou/mm3 (0.00-0.00); Lymphocytes # (Auto) 2.1 Thou/mm3 (1.0-4.8); Lymphocytes % (Auto) 29 % (10-50); Mean Corpuscular HGB Conc 34.1 g/dl (31.0-37.0); Mean Corpuscular Hemoglobin 32.9 pg (25.0-35.0); Mean Corpuscular Volume 96 fL (80-100); Monocytes # (Auto) 0.7 Thou/mm3 (0.0-0.8); Monocytes % (Auto) 9 % (0-12); Neutrophils # (Auto) 4.1 Thou/mm3 (1.8-7.7); Neutrophils % (Auto) 57 % (37-80); Nucleated Red Blood Cell # 0.00 Thou/mm3 (0.00-0.00); Nucleated Red Blood Cell % 0 /100 WBC (0); Platelet Count 288 Thou/mm3 (140-440); RDW Standard Deviation 77.1 fL (36.4-46.3); Red Blood Count 3.92 Miln/mm3 (4.00-5.20); White Blood Count 7.3 Thou/mm3 (3.6-11.0)
[2025-03-03 14:09] LABS: Alanine Aminotransferase 18 U/L (10-49); Albumin, Serum 4.2 gm/dL (3.4-4.8); Albumin/Globulin Ratio 2.0 (1.2-2.2); Alkaline Phosphatase 128 U/L (46-116); Anion Gap 10 (7-16); Aspartate Amino Transferase 28 U/L (0-34); BUN/Creatinine Ratio 10 Ratio (12-20); Bilirubin,Total 0.3 mg/dL (0.3-1.2); Blood Urea Nitrogen 10 mg/dL (9-23); Calcium 9.0 mg/dL (8.3-10.6); Calcium (Corrected) 9.0 mg/dL (8.5-10.1); Carbon Dioxide 25.4 mMol/L (20.0-31.0); Chloride 106 mMol/L (98-107); Creatinine (Component) 1.0 mg/dL (0.6-1.3); Globulin 2.1 gm/dL (2.3-3.5); Glucose 88 mg/dL (74-106); Osmolality,Calculated 279 (275-295); Potassium 4.7 mMol/L (3.4-5.1); Sodium 141 mMol/L (136-145); Total Protein 6.3 gm/dL (5.7-8.2); eGFR 58 See Note
--- NOTE | 2025-03-07 12:32 | CTCFLWUP_ITS ---
Patient: TYREL DEAN : 1945 Page 3 of 6 FOLLOW UP NOTE DATE OF SERVICE: 03/07/2025 NAME: TYREL DEAN ACCOUNT: [id number] : 1945 AGE: 79 INTERVAL HISTORY: Patient received 6 months of capecitabine as adjuvant therapy for her stage III colon cancer. Patient completed 6 months of therapy in January 2025. Patient is doing well and have symptoms of mild neuropathy in her feet. Patient feels tingling sensation at nighttime which affects her sleep. Patient has been talked taking [place]. Medical History - Cancer, currently in remission - History of positive Neutera test indicating cancer presence Medications and Supplements - Capecitabine - 1500 mg in the morning and 1500 mg in the evening - Taken for 2 weeks, followed by 1 week off - Started on July 20 - Benefits: Tumor markers decreased, JCA 99 improved to 19 - Side effects: Mild blisters in mouth, sore feet Also have diarrhea. At last visit capecitabine was decreased to 2 tablets twice daily but patient has been taking 3 tablets 2 times daily. Social History - Living Situation: Patient mentions needing to apply for a caregiver - Occupation: Patient's potential caregiver has a job that they don't want to leave - Pharmacy: Patient gets medication at [facility] in [facility] Review of Systems General: Negative for fever, chills, fatigue. Skin: Positive for blisters on feet. HEENT: Positive for mouth blisters. Musculoskeletal: Positive for sore feet. Psychiatric: Positive for feeling sad. ONCOLOGY HISTORY: DIAGNOSIS: Malignant neoplasm of pancreatic duct [ICD10] C25.3 04/30/2024 CT scan shows no mediastinal lymphadenopathy no pneumonia. Suspicious 17 mm periaortic lymph node consider PET CT scan follow-up DATE OF DIAGNOSIS: 08/21/2023 STAGE/TNM: Stage III T3 N2 M0 pancreatic ductal adenocarcinoma TREATMENT HISTORY: Care?Plan Start?Date Cycle Day Intent Gemcitabine?1000m2?07/2011/12/2023 1 28 Curative?(adjuvant) VENOfer?200mg?IV?wkly?for?10?weeks 01/06/2025 1 70 Maintenance HISTORY OF PRESENT ILLNESS: Stage III (pT3, pN2, C M0) pancreatic ductal adenocarcinoma, moderately to poorly differentiated with lymphovascular invasion and perineural invasion. S/p Whipple resection (08/21/2023) S/p adjuvant chemotherapy with capecitabine and gemcitabine (11/05/2023??12/25/2019). Unfortunately she is not able to tolerate full recommended doses. Upper abdominal pain due to UTI (01/10/2024) treated with antibiotics. Chemotherapy was discontinued at patient's. Timeline Tyrel Dean is ENG speaking female with history of hypertension and depression has the following oncology history. April 2023: Ms. Dean started having upper abdominal discomfort/pain. 07/04/2023: The patient found that she is jaundiced and went to [facility] emergency room. 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 She had stent placed. She also had biliary drain tube. With drainage to the outside. She was in the hospital till July 10, After that she was transferred to [facility]. She was admitted to the Hospital. She had biopsy of the pancreatic mass and discharged home on . Apparently biopsy showed pancreatic cancer. 07/12/2023: Ms. Dean had CT scan of the chest with contrast? Patient: TYREL DEAN. : 1945 Page 2 of 6 08/21/2023: Ms. Dean had a Whipple resection of the head of the pancreas with resection of the partial antrum of the stomach, liver resection of partial segments 3 and partial segments 4, 5, placement of fiducial markers, removal of foreign body which was a cholecystostomy tube and periportal lymphadenectomy. Patient: TYREL DEAN. : 1945 Page 3 of 6 11/05/2023?12/25/2019: The patient was treated with adjuvant capecitabine and gemcitabine. The chemotherapy was discontinued due to severe urosepsis requiring her to be transferred to [facility]. 01/22/2024: Chest x-ray PA and lateral views were obtained due to shortness of breath. Patient had a history of cigarette smoking for about 30 years. 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 Tobacco Use:?Quit 3 months ago - smoked 1pack/week x 30yrs ETOH?Use:?Denies Drug?Note:?Denies Social History Note:?Son and family live with pt [place] HISTORY: Menarche?-?Age:?17 Menopause:?45 :?3 Live?Births:?3 Age?1st?:?19 MEDICATIONS: 1. B12 Active - 1,000 mcg 1 tab Daily 2. buPROPion HCl - 300 mg 1 tab Daily 3. capecitabine - 500 mg 3 tab 3 tabs twice daily 4. Centrum Women - 18-400 mg-mcg tab 5. Creon - 36,000-114,000- 180,000 unit 1 Capsule Three times a day 6. DULoxetine - 30 mg 1 Capsule Daily 7. gabapentin - 300 mg 1 Capsule Daily 8. hydrocodone-acetaminophen - 5-325 mg 1 tab 1 tab as needed every 6 hrs for pain 9. Lomotil - 2.5-0.025 mg 1 tab As directed 10. Lomotil - 2.5-0.025 mg 1 tab every 8 hrs as needed for severe diarrhea , 11. pantoprazole - 40 mg 1 tab Daily Medications Last Reconciled by Harleen Arce MD on 03/07/2025 ALLERGIES: erythromycin base REVIEW OF SYSTEMS: A complete 14-point review of systems was performed and is negative except as noted in interval history. PHYSICAL EXAMINATION: VITAL SIGNS: Temperature?97, B/P?152/87, Oxygen?Saturation?97% Weight?163?lbs (Change?since?03/03/25:?-2.6?lbs) PAIN: 0 - No pain ECOG Performance Status: 1 - Symptomatic; ambulatory; restricted in strenuous activity GENERAL APPEARANCE: Appears well, in no apparent distress, appropriately interactive. HEENT: Normocephalic, no temporal wasting, normal conjunctiva, no scleral icterus, normal hearing, lips without lesions, neck normal range of motion. CARDIOVASCULAR: Not assessed. PULMONARY: Normal respiratory effort, no respiratory distress or use of accessory muscles, speaking in full sentences, no tachypnea. EXTREMITIES: No pedal edema or cyanosis. SKIN: Normal skin appearance. NEUROLOGIC: Alert and oriented x4. PSHYCHIATRIC: Appropriate affect, mood normal, behavior normal, intact thought and speech. LABORATORY DATA: I have personally reviewed and interpreted each of the patient?s relevant lab tests, abnormal findings are below: Date 12/15/24 03/03/25 ??WHITE?BLOOD?COUNT?(Thou/mm3) 7.5 7.3 ??RED?BLOOD?COUNT?(Miln/mm3) 3.28?L 3.92?L ??HEMOGLOBIN?(gm/dl) 10.3?L 12.9 ??HEMATOCRIT?(%) 31.4?L 37.8 ??PLATELET?COUNT?(Thou/mm3) 330 288 ??NEUTROPHILS?%,?AUTO?(%) 62 57 ??LYMPH?%,?AUTO?(%) 24 29 ??NEUTROPHILS,?AUTO?(Thou/mm3) 4.7 4.1 ??GLUCOSE,RANDOM?(mg/dL) 108?H 88 ??BLOOD?UREA?NITROGEN?(mg/dL) 11 10 ??CREATININE?(mg/dL) 1.20 1.00 ??SODIUM?(mmol/L) 140 141 ??POTASSIUM?(mmol/L) 3.8 4.7 ??CHLORIDE?(mmol/L) 109?H 106 ??CrCl?(CandG)?(ml/min) 44.60 54.98 ??AST/SGOT?(Unit/L) 23 28 ??ALT/SGPT?(Unit/L) 13 18 ??ALKALINE?PHOSPHATASE?(Unit/L) 159?H 128?H ??BILIRUBIN,?TOTAL?(mg/dL) 0.6 0.3 ??PROTEIN?TOTAL?(gm/dl) 6.8 6.3 ??ALBUMIN,?SERUM?(gm/dl) 4.3 4.2 ??GLOBULIN?(gm/dl) 2.5 2.1?L ??ALBUMIN/GLOBULIN?RATIO 1.7 2.0 ??CALCIUM,?SERUM?(mg/dL) 9.0 9.0 ??CALCIUM?SERUM?(CORRECTED)?(mg/dL) 9.0 9.0 ASSESSMENT/PLAN: 1. 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 S/p Whipple resection (08/21/2023) Status post adjuvant chemotherapy with gemcitabine and capecitabine from 11/05/2023 to 12/25/2023. Chemotherapy was discontinued due to severe urosepsis Patient and family decided not to further pursue adjuvant chemotherapy and has been on active surveillance Pet scan shows multiple enlarged nodes which are more metabolically active Patient restarted capecitabine Patient received 1000 mg mg PO BID (3 tablets BID) for 2 weeks, followed by 1 week off Completed 6 months of therapy Discussed that she may likely have stage IV cancer Will continue to monitor CT scan to evaluate for any metastatic disease If patient have progression of cancer will do biopsy #2 iron deficiency Patient has severe iron deficiency Ferritin less than 20 Patient is on intravenous iron and feeling well #3 pain Patient was given [place] during the chemotherapy Will transition to gabapentin CBC CMP ca 19-9 and naterra for MRD ORDERS: Order # Description [id number] CT Scan + Chest + Abdomen and Pelvis + With Contrast [id number] MD Follow Up 2 Months [id number] MD Follow Up 3 Months [id number] + CEA RETURN TO CLINIC: I reviewed the diagnosis, prognosis, and recommended treatment/procedure options with the patient (and/or their legal home furnishings sales representative), including the potential benefits, risks, side effects and alternative therapies. We also discussed the option of no treatment and the possibility of clinical trial participation, if applicable. All questions were addressed, and they demonstrated understanding. They provided informed consent to proceed with the proposed plan of care. BILLING AND COMPLIANCE: I reviewed external records from providers outside my specialty as summarized above. I spent a total of 50 minutes on this patient?s care on the day of their visit excluding time spent related to any billed procedures. This time includes time spent with the patient as well as time spent documenting in the medical record, reviewing patients records and tests, obtaining history, placing orders, communicating with other healthcare professionals, counseling the patient, family or caregiver, and/or care coordination for the diagnoses above. Electronically Signed by: Nahun Snyder MD T: 12:30 PM CC: PCP: Referring: Jay Brandt This document was completed utilizing speech recognition software. Grammatical errors, random word insertions, pronoun errors, and incomplete sentences are an occasional consequence of this system due to software limitations, ambient noise, and hardware issues. Any formal questions or concerns about the content, text or information contained within the body of this dictation should be directly addressed to the provider for clarification.
[2025-03-08 06:29] LABS: CA 19-9 Antigen* 29 U/mL (<34)
== END 2025-03-18 23:59 | disposition home or self-care (01) ==
LOC: SCTC 12:52
PROVIDERS: PCP Student in an Organized Health Care Education/Training Program; Referring Provider Student in an Organized Health Care Education/Training Program; Visit Provider Internal Medicine Hematology & Oncology
DX: E61.1 Iron deficiency (principal); C25.3 Malignant neoplasm of pancreatic duct; Z92.21 Personal history of antineoplastic chemotherapy
CPT/HCPCS: 80053; 85025; 86301; 96365; 99212; A4216; J1642; J1756; J3490; J7040; G0463

== ENCOUNTER 2025-03-30 09:58 | Outpatient (RCR) | payer MEDICARE, SELFPAY | END 2025-04-17 23:59 | disposition home or self-care (01) | LOC: SCTC 09:58 | PROVIDERS: PCP Student in an Organized Health Care Education/Training Program; Referring Provider Student in an Organized Health Care Education/Training Program; Visit Provider Radiology Therapeutic Radiology | DX: C25.3 Malignant neoplasm of pancreatic duct (principal); Z90.410 Acquired total absence of pancreas; G89.3 Neoplasm related pain (acute) (chronic) | CPT/HCPCS: 96365; 99213; A4216; J1642; J1756; J3490; J7040; G0463 ==